=== PATIENT | female | born 1980 ===

== ENCOUNTER 2018-09-15 01:03 | Inpatient (IN) | payer MEDICAID, OTHER ==
[2018-09-15 01:04] VITALS: BMI 35.5
--- NOTE | 2018-09-15 01:22 | C.PDOC ---
History Of Present Illness 37 year old female presents to the emergency department with complaints of depression and suicidal thoughts on and off for the last few years. Patient states that she has no suicidal plan, and that she has been using heroin throughout this time. Time Seen by Provider: 09/15/18 01:22 Chief Complaint (Nursing): Psychiatric Evaluation History Per: Patient History/Exam Limitations: no limitations Onset/Duration Of Symptoms: Waxing/Waning (for the last few years) Current Symptoms Are (Timing): Still Present Suicide/Self Injury Attempted (Context): None Modifying Factor(s): Other (heroin) Associated Symptoms: Depression, Suicidal Thoughts. denies: Suicidal Plan Past Medical History Reviewed: Historical Data, Nursing Documentation, Vital Signs Vital Signs: Last Vital Signs Temp 97.9 F 09/15/18 01:16 Pulse 94 H 09/15/18 01:16 Resp 16 09/15/18 01:16 BP 160/85 H 09/15/18 01:16 Pulse Ox 98 09/15/18 01:16 - Medical History PMH: Anemia, Anxiety, Depression, Diverticulitis, Gastritis, Gall Bladder Disease, HTN, Hypercholesterolemia, Migraine Denies: Diabetes, Hepatitis, HIV, Chronic Kidney Disease, Seizures, Sexually Transmitted Disease Surgical History: Cholecystectomy, Tonsillectomy (09/2013) - [facility] Procedures APPLICATION OF SPLINT (04/06/14) CLOSED ENDOSCOPIC BIOPSY OF LARGE INTESTINE (05/02/13) ESOPHAGOGASTRODUODENOSCOPY [EGD] W/CLOSED BIOPSY (01/08/14) INJECT/INFUSE ELECTROLYT (08/31/14) INJECT/INFUSE NEC (08/31/14) LAPAROSCOP LYSIS-PERITONEAL ADHES (04/10/13) LAPAROSCOPIC CHOLECYSTECTOMY (04/10/13) LAPAROSCOPIC REPAIR UMBILICAL HERNIA W GRAFT OR PROSTHESIS (04/10/13) MEDS MGMT FOR SUBSTANCE ABUSE TREATMENT, METHADONE MAINT (12/14/17) TONSILLECTOMY (09/26/13) TRANSFUSE NONAUT RED BLOOD CELLS IN PERIPH VEIN, PERC (12/14/17) Family History: States: Unknown Family Hx - Social History Hx Tobacco Use: No Hx Alcohol Use: Yes Hx Substance Use: Yes (IVDA 1900) - Immunization History Hx Tetanus Toxoid Vaccination: Yes Hx Influenza Vaccination: Yes Hx Pneumococcal Vaccination: Yes Review Of Systems Constitutional: Negative for: Fever, Chills Psych: Positive for: Depression, Suicidal ideation Physical Exam - Physical Exam Appears: Non-toxic, No Acute Distress Skin: Warm, Dry Head: Normacephalic Eye(s): bilateral: Normal Inspection, PERRL, EOMI Oral Mucosa: Moist Neck: Trachea Midline, Supple Chest: Symmetrical, No Tenderness Cardiovascular: Rhythm Regular, No Murmur Respiratory: No Rales, No Rhonchi, No Wheezing Neurological/Psych: Oriented x3, Normal Speech, Normal Cognition ED Course And Treatment - Laboratory Results Result Diagrams: 09/15/18 01:44 09/15/18 01:44 O2 Sat by Pulse Oximetry: 98 (RA) Pulse Ox Interpretation: Normal Progress Note: Plan: Alcohol Serum. CMP. Drug Screen. Phosphorus. CBC. AES Crisis Eval. HCG Qualitative Urine. Urinalysis Disposition Discussed With Dr.: Toni Virgen Comment: accepted the pt on [facility] service and took over the care at 5:24 AM Counseled Patient/Family Regarding: Studies Performed, Diagnosis - Disposition Disposition: HOSPITALIZED Disposition Time: 01:22 Condition: FAIR Forms: [employer] 2 (Czech) - POA Present On Arrival: None - Clinical Impression Clinical Impression: Major depression, Opioid use disorder - Scribe Statement The provider has reviewed the documentation as recorded by the Scribe (Jose Nickerson) Provider Attestation: All medical record entries made by the Scribe were at my direction and personally dictated by me. I have reviewed the chart and agree that the record accurately reflects my personal performance of the history, physical exam, medical decision making, and the department course for this patient. I have also personally directed, reviewed, and agree with the discharge instructions and disposition. Decision To Admit - Pt Status Changed To: Hospital Disposition Of: Inpatient - Admit Certification Admit to Inpatient:: After my assessment, the patient will require hospitalization for at least two midnights. This is because of the severity of symptoms shown, intensity of services needed, and/or the medical risk in this patient being treated as an outpatient. - InPatient: Physician Admission Certification: I certify that this patient requires 2 or more midnights of care for the following reason:: After my assessment, the patient will require hospitalization for at least two midnights. This is because of the severity of symptoms shown, intensity of services needed, and/or the medical risk in this patient being treated as an outpatient. - . Bed Request Type: Psychiatry Admitting Physician: Toni Virgen Patient Diagnosis: Major depression, Opioid use disorder
[2018-09-15 01:51] LABS: BASO # 0.1 K/uL (0.0-0.2); BASO % 1.2 % (0.0-2.0); EOS % 0.8 % (0.0-4.0); HEMOGLOBIN 13.5 g/dL (11.0-16.0); LYMPH # 1.8 K/uL (1.0-4.3); LYMPH % 37.7 % (20.0-40.0); MEAN CELL VOLUME 88.4 fL (81.0-99.0); MEAN CORPUSCULAR HEMOGLOBIN 29.7 pg (27.0-31.0); MEAN CORPUSCULAR HGB CONC 33.6 g/dL (33.0-37.0); MEAN PLATELET VOLUME 9.6 fL (7.2-11.7); MONO # 0.5 K/uL (0.0-0.8); MONO % 9.7 % (0.0-10.0); NEUT # 2.4 K/uL (1.8-7.0); NEUT % 50.6 % (50.0-75.0); NRBC % 0.1 % (0.0-2.0); RBC 4.56 Mil/uL (3.80-5.20); RED CELL DISTRIBUTION WIDTH 14.7 % (11.5-14.5); WHITE BLOOD COUNT 4.8 K/uL (4.8-10.8)
[2018-09-15 01:55] LABS: HCG,QUALITATIVE URINE NEGATIVE (NEGATIVE)
[2018-09-15 01:56] LABS: SQUAMOUS EPITHIAL 2 /hpf (0-5); URINE BACTERIA RARE (<OCC); URINE BILIRUBIN 1+ (NEGATIVE); URINE BLOOD NEGATIVE (NEGATIVE); URINE CLARITY Hazy (Clear); URINE COLOR Amber (YELLOW); URINE GLUCOSE (UA) NORMAL (Normal); URINE LEUKOCYTE ESTERASE NEG Leu/uL (Negative); URINE PROTEIN 1+ mg/dL (NEGATIVE)
[2018-09-15 02:02] LABS: ALB/GLOB RATIO 1.1 (1.0-2.1); ALBUMIN 4.1 g/dL (3.5-5.0); ALT/SGPT 38 U/L (9-52); AST/SGOT 41 U/L (14-36); BLOOD UREA NITROGEN 11 mg/dL (7-17); CALCIUM 9.7 mg/dl (8.6-10.4); GFR NON-AFRICAN AMERICAN > 60
[2018-09-15 02:10] LABS: PHENCYCLIDINE, UR NEGATIVE (NEGATIVE)
[2018-09-15 02:11] LABS: BARBITURATES, UR POSITIVE (NEGATIVE); BENZODIAZEPINES, UR POSITIVE (NEGATIVE); OPIATES, UR POSITIVE (NEGATIVE)
--- NOTE | 2018-09-15 08:02 | PCM.BM ---
<Saray Whatley - Last Filed: 09/15/18 07:58> Treatment Plan Problems - Problems identified on initial assessmt Depression Date Initiated: 09/15/18 Time Initiated: 07:59 Assessment reference: NA Status: Active Substance Abuse Date Initiated: 09/15/18 Time Initiated: 07:59 Assessment reference: NA Status: Active Treatment assets and liabiliti Patient Assests: ADL independent, physically healthy, negotiates basic needs, cognitively intact Patient Liabilities: live alone, financial problems, substance abuse (Cocaine, Opiates, Beozo), medical problems (brain aneurysm, Hep C, Ovarian cyst), visual impairment (Wear glasses) - Milieu Protocol Maintain good personal hygiene: daily Encourage regular showers, daily Remind patient to perform daily oral care, daily Assist patient to perform ADL's (Self) Conduct patient checks and document Observation sheet: Q15 minutes Maintain personal safety: every shift Educate patient to report safety concerns to staff, every shift Monitor environment for contraband/sharps Medication safety: Monitor for expected outcome, potential side effects: every shift, Assess barriers to learning: every shift, Assess readiness for medication education: every shift <Jenny Wheat - Last Filed: 09/16/18 13:36> Family Contact Family involvement: Famliy/SO not involved - Goals for Treatment Patient goals for treatment: "I need a methadone program." Discharge/Continuing Care - Education Needs Education Needs: Patient Medication, Patient Coping Skills, Patient Placement options, Patient Community resources - Discharge Discharge Criteria: Tolerates medication w/o severe side effects, No longer exhibiting s/s of withdrawal, Reduction of target symptoms Discharge to:: [facility] - Treatment Team Participation Discussed with Family/SO: No Was Patient/Family/SO present at Treatment Team Meeting: Yes <Suzie Sylvester - Last Filed: 09/16/18 14:01> - Diagnosis (1) Major depression Status: Acute Interventions: 09/16/18 14:01 * Assess/adjust medications daily and /or as needed * See patient on an individual basis 7x/week to assess symptoms of depression * Monitor for side effects & effectiveness of medications * (2) Opioid use disorder Status: Acute Interventions: 09/16/18 14:01 * Assess 7x/week regarding severity of withdrawal * Educate regarding risks, benefits, side effects and alternatives of medications * Use Motivational Interviewing for abstinence * Use CBT for relapse prevention * Medication management for withdrawal symptoms * Encourage medication assisted treatment *
[2018-09-15] MEDS ORDERED: Aluminum Hydroxide/Magnesium Hydroxide Susp (30 mL) PO PRN (16:22)
--- NOTE | 2018-09-15 19:16 | PCM.PSYCH ---
Initial Psychiatric Evaluation - Initial Psychiatric Evaluation Type of Admission: Voluntary Legal Status: Capacity Current Medications: Active Medications Generic Name Dose Route Start Last Admin Trade Name Freq PRN Reason Stop Dose Admin Al Hydrox/Mg Hydrox/Simethicone 30 ml 09/15/18 16:22 Maalox 30 Ml PO TID PRN Indigestion / Heartburn Clonidine HCl 0.1 mg 09/15/18 16:22 Catapres PO Q8 PRN COWS Score More or Equal to 5 Dicyclomine HCl 10 mg 09/15/18 16:25 Bentyl PO Q6 PRN Abdominal cramps Gabapentin 300 mg 09/15/18 18:00 09/15/18 17:19 Neurontin PO 300 mg BID NEHA Administration Ibuprofen 400 mg 09/15/18 16:26 Motrin Tab PO Q6 PRN Pain, moderate (4-7) Influenza Virus Vaccine 60 mcg 09/17/18 10:00 Fluzone Quad [id number] IM 09/17/18 10:01 .ONCE ONE Loperamide HCl 2 mg 09/15/18 16:22 Imodium PO Q8 PRN Diarrhea Lorazepam 1 mg 09/15/18 16:27 Ativan PO Q6 PRN for angiolytic withdrawal Methadone HCl 15 mg 09/16/18 10:00 Methadone PO 09/19/18 09:59 Q24H NEHA Taper Ondansetron HCl 4 mg 09/15/18 16:22 Zofran Tab PO Q8 PRN Nausea/Vomiting Pneumococcal Polyvalent Vaccine 0.5 ml 09/17/18 10:00 Pneumovax 23 Vaccine IM 09/17/18 10:01 .ONCE ONE Trazodone HCl 50 mg 09/15/18 22:00 Desyrel PO HS NEHA Past Psychiatric History - Past Psychiatric History Pertinent Medical Hx (Current Medical&Sleep Prob, Allergies): Allergies Allergy/AdvReac Type Severity Reaction Status Date / Time adhesive tape Allergy RASH Verified 08/23/18 18:16 Alprazolam [Xanax] 2 mg PO QID 12/19/17 Oxycodone HCl [Roxicodone] 30 mg PO QID 12/27/17 PARoxetine [Paxil] 10 mg PO DAILY 12/27/17 Ibuprofen [Motrin] 600 mg PO Q6 PRN #30 tab 08/13/18 RX: Clindamycin [Cleocin] 300 mg PO QID PRN #40 cap 08/23/18 RX: Ibuprofen [Motrin Tab] 600 mg PO QID PRN #30 tab 08/23/18
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
[2018-09-17] MEDS ORDERED: Influenza Vaccine 60 MCG/0.5 ML SYR (3 yr & up) IM ONE (10:00)
[2018-09-17] MEDS ORDERED: Pneumococcal 23-Valent Vaccine IM ONE (10:00)
--- NOTE | 2018-09-17 11:48 | PCM.PYCHPN ---
Psychiatric Progress Note - Psychiatric Progress Note Patient seen today, length of contact: 19 min Patient Chief Complaint: "I am better but not so much" Problems Identified/Issues Discussed: The pt is seen, chart reviewed, case discussed with staff. The pt is compliant with medications and reports no side-effects. Symptoms are improving but needs more time to stabilize. Pt attends groups and activities. Support given, psycho-education provided. After care discussed. She is still not interested - "I guess I'll just go to the streets and do what I do" Risks discussed Medication Change: Yes (meds increased slowly) Medical Record Reviewed: Yes Mental Status Examination - Cognitive Function Orientation: Person, Place, Situation, Time Memory: Intact Attention: WNL Concentration: Poor Association: WNL Fund of Knowledge: WNL - Mood Mood: Depressed, Anxious - Affect Affect: Constricted - Speech Speech: Appropriate - Formal Thought Process Formal Thought Process: No Impairment - Suicidal Ideation Suicidal Ideation: No - Homicidal Ideation Homicidal Ideation: No Goal/Treatment Plan - Goal/Treatment Plan Need for Continued Stay: Severe depression anxiety, Discharge may exacerbated symptoms, Severe functional impairment Progress Toward Problem(s) and Goals/Treatment Plan: Taper with methadone Seroquel for mood sxs remeron and wellbutrin for depression Gabapentin for augmentation and anxiety As needed medications All risks, benefits and alternatives of the meds discussed, and the pt agreed and understood. Attend groups and activities Supportive therapy and psychoeducation [place] for abstinence CBT for relapse prevention Encourage MAT Refer to rehab or IOP, and self-help groups Teach healthy lifestyle methods, i.e. diet, exercise, meditation Smoking cessation with [place] Nicotine patch if needed Estimated Date of D/C: 09/20/18
--- NOTE | 2018-09-18 11:48 | PCM.PYCHPN ---
Psychiatric Progress Note - Psychiatric Progress Note Patient seen today, length of contact: 19 min Patient Chief Complaint: "I was suicidal yesterday, a little better today" Problems Identified/Issues Discussed: The pt is seen, chart reviewed, case discussed with staff. The pt is compliant with medications and reports no side-effects. She reports flashbacks, nightmares, insomnia, PTSD sxs and low mood Meds increased and Prazosin added She put in a 48 hr note but rescinded it today Support and psychoed given [place] and CBt used Medication Change: Yes (meds increased slowly) Medical Record Reviewed: Yes Mental Status Examination - Cognitive Function Orientation: Person, Place, Situation, Time Memory: Intact Attention: WNL Concentration: Poor Association: WNL Fund of Knowledge: WNL - Mood Mood: Depressed, Anxious - Affect Affect: Constricted - Speech Speech: Appropriate - Formal Thought Process Formal Thought Process: No Impairment - Suicidal Ideation Suicidal Ideation: No - Homicidal Ideation Homicidal Ideation: No Goal/Treatment Plan - Goal/Treatment Plan Need for Continued Stay: Severe depression anxiety, Discharge may exacerbated symptoms, Severe functional impairment Progress Toward Problem(s) and Goals/Treatment Plan: Taper with methadone, ending tomorrow Seroquel for mood sxs - increased remeron and wellbutrin for depression - the latter increased prazosin for pTSD Suicide prevention discussed - she contracted for safety and will follow safety plan Gabapentin for augmentation and anxiety As needed medications All risks, benefits and alternatives of the meds discussed, and the pt agreed and understood. Attend groups and activities Supportive therapy and psychoeducation [place] for abstinence CBT for relapse prevention Encourage MAT Refer to rehab or IOP, and self-help groups Teach healthy lifestyle methods, i.e. diet, exercise, meditation Smoking cessation with [place] Nicotine patch if needed Estimated Date of D/C: 09/20/18
[2018-09-18] MEDS ORDERED: Prazosin HCL 2 mg PO SCH (18:00)
[2018-09-19] MEDS: buPROPion 150 mg/24 Hours XL Tab PO SCH (10:26)
--- NOTE | 2018-09-19 13:06 | PCM.PYCHPN ---
Psychiatric Progress Note - Psychiatric Progress Note Patient seen today, length of contact: 17 min Patient Chief Complaint: "I hallucinated last night about my mother" Problems Identified/Issues Discussed: The pt is seen, chart reviewed, case discussed with staff. The pt is compliant with medications and reports no side-effects. Symptoms are improving but needs more time to stabilize. Still having AVH on and off, likely PTSD-related, mood swings, insomnia Not suicidal, no plans Pt attends groups and activities but nor regularly Support given, psycho-education provided. After care discussed. She is not sure Medication Change: Yes (meds increased slowly) Medical Record Reviewed: Yes Mental Status Examination - Cognitive Function Orientation: Person, Place, Situation, Time Memory: Intact Attention: WNL Concentration: Poor Association: WNL Fund of Knowledge: WNL - Mood Mood: Depressed, Anxious - Affect Affect: Constricted - Speech Speech: Appropriate - Formal Thought Process Formal Thought Process: No Impairment - Suicidal Ideation Suicidal Ideation: No - Homicidal Ideation Homicidal Ideation: No Goal/Treatment Plan - Goal/Treatment Plan Need for Continued Stay: Severe depression anxiety, Discharge may exacerbated symptoms, Severe functional impairment Progress Toward Problem(s) and Goals/Treatment Plan: Taper with methadone, ending tomorrow Seroquel for mood sxs - increased remeron and wellbutrin for depression - the latter increased prazosin for pTSD Suicide prevention discussed - she contracted for safety and will follow safety plan Gabapentin for augmentation and anxiety As needed medications All risks, benefits and alternatives of the meds discussed, and the pt agreed and understood. Attend groups and activities Supportive therapy and psychoeducation [place] for abstinence CBT for relapse prevention Encourage MAT Refer to rehab or IOP, and self-help groups Teach healthy lifestyle methods, i.e. diet, exercise, meditation Smoking cessation with [place] Nicotine patch if needed Estimated Date of D/C: 09/20/18
[2018-09-19] MEDS: Prazosin HCL 2 mg PO SCH (21:09)
[2018-09-20] MEDS: buPROPion 150 mg/24 Hours XL Tab PO SCH (09:43)
--- NOTE | 2018-09-20 11:06 | PCM.PYCHPN ---
Psychiatric Progress Note - Psychiatric Progress Note Patient seen today, length of contact: 18 min Patient Chief Complaint: "I am very very anxious" Problems Identified/Issues Discussed: The pt is seen, chart reviewed, case discussed with staff. The pt is compliant with medications and reports no side-effects. Symptoms are improving but needs more time to stabilize. Still c/o severe anxiety, depression, at times VH. No SP but has vague SI on and off She agred to d/c ativan but will use klonopin for now - Risks , incl. addiction, seizures discussed. Pt attends groups and activities. Support given, psycho-education provided. After care discussed. Medication Change: Yes (meds increased slowly) Medical Record Reviewed: Yes Mental Status Examination - Cognitive Function Orientation: Person, Place, Situation, Time Memory: Intact Attention: WNL Concentration: Poor Association: WNL Fund of Knowledge: WNL - Mood Mood: Depressed, Anxious - Affect Affect: Constricted - Speech Speech: Appropriate - Formal Thought Process Formal Thought Process: No Impairment - Suicidal Ideation Suicidal Ideation: No - Homicidal Ideation Homicidal Ideation: No Goal/Treatment Plan - Goal/Treatment Plan Need for Continued Stay: Severe depression anxiety, Discharge may exacerbated symptoms, Severe functional impairment Progress Toward Problem(s) and Goals/Treatment Plan: Taper with methadone, ending tomorrow Seroquel for mood sxs - increased remeron and wellbutrin for depression - the latter increased prazosin for pTSD Suicide prevention discussed - she contracted for safety and will follow safety plan Gabapentin for augmentation and anxiety As needed medications All risks, benefits and alternatives of the meds discussed, and the pt agreed and understood. Attend groups and activities Supportive therapy and psychoeducation [place] for abstinence CBT for relapse prevention Encourage MAT Refer to rehab or IOP, and self-help groups Teach healthy lifestyle methods, i.e. diet, exercise, meditation Smoking cessation with [place] Nicotine patch if needed Estimated Date of D/C: 09/23/18 If changed, why: still very sick, depressed, suicidal
[2018-09-20] MEDS: Prazosin HCL 2 mg PO SCH (21:25)
[2018-09-21] MEDS: buPROPion 150 mg/24 Hours XL Tab PO SCH (09:08)
[2018-09-21] MEDS: Prazosin HCL 2 mg PO SCH (21:11)
--- NOTE | 2018-09-21 22:58 | PCM.PYCHPN ---
Psychiatric Progress Note - Psychiatric Progress Note Patient seen today, length of contact: 16 min Patient Chief Complaint: "I am still depressed, I don't know why" Problems Identified/Issues Discussed: The pt is seen, chart reviewed, case discussed with staff. The pt is compliant with medications and reports no side-effects. Symptoms are improving but needs more time to stabilize. After care discussed, support and psychoeducation given. Ways to cope with dep/anx/anger discussed Medication Change: Yes (meds increased slowly) Medical Record Reviewed: Yes Mental Status Examination - Cognitive Function Orientation: Person, Place, Situation, Time Memory: Intact Attention: WNL Concentration: Poor Association: WNL Fund of Knowledge: WNL - Mood Mood: Depressed, Anxious - Affect Affect: Constricted - Speech Speech: Appropriate - Formal Thought Process Formal Thought Process: No Impairment - Suicidal Ideation Suicidal Ideation: No - Homicidal Ideation Homicidal Ideation: No Goal/Treatment Plan - Goal/Treatment Plan Need for Continued Stay: Severe depression anxiety, Discharge may exacerbated symptoms, Severe functional impairment Progress Toward Problem(s) and Goals/Treatment Plan: Taper with methadone, ending tomorrow Seroquel for mood sxs - increased remeron and wellbutrin for depression - the latter increased prazosin for pTSD Suicide prevention discussed - she contracted for safety and will follow safety plan Gabapentin for augmentation and anxiety As needed medications All risks, benefits and alternatives of the meds discussed, and the pt agreed and understood. Attend groups and activities Supportive therapy and psychoeducation IL for abstinence CBT for relapse prevention Encourage MAT Refer to rehab or IOP, and self-help groups Teach healthy lifestyle methods, i.e. diet, exercise, meditation Smoking cessation with IL Nicotine patch if needed Estimated Date of D/C: 09/23/18
[2018-09-22 06:55] VITALS: RESP 20
[2018-09-22] MEDS: buPROPion 150 mg/24 Hours XL Tab PO SCH (09:22)
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
[2018-09-22] MEDS: Prazosin HCL 2 mg PO SCH (21:14)
[2018-09-23 08:52] VITALS: BP 105/72; PULSE 93; TEMP 97.9; O2SAT 95
[2018-09-23] MEDS: buPROPion 150 mg/24 Hours XL Tab PO SCH (09:35)
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
== END 2018-09-23 12:28 | disposition home or self-care (01) | DRG 753 ==
LOC: C.ER 01:03 → C.5E 05:23
PROC: GZ3ZZZZ Medication Management (ICD-10-PCS; principal; 2018-09-15)
PROC: HZ81ZZZ Medication Management for Substance Abuse Treatment, Methadone Maintenance (ICD-10-PCS; 2018-09-15)
PROC: HZ80ZZZ Medication Management for Substance Abuse Treatment, Nicotine Replacement (ICD-10-PCS; 2018-09-15)
PROC: GZHZZZZ Group Psychotherapy (ICD-10-PCS; 2018-09-15)
PROC: GZ56ZZZ Individual Psychotherapy, Supportive (ICD-10-PCS; 2018-09-15)
DX: F31.4 Bipolar disorder, current episode depressed, severe, without psychotic features (principal); F22 Delusional disorders; R45.851 Suicidal ideations; F11.23 Opioid dependence with withdrawal; F14.90 Cocaine use, unspecified, uncomplicated; F43.10 Post-traumatic stress disorder, unspecified; F60.3 Borderline personality disorder; G47.00 Insomnia, unspecified; Z62.810 Personal history of physical and sexual abuse in childhood; I10 Essential (primary) hypertension; D64.9 Anemia, unspecified; Z91.5 Personal history of self-harm; Z59.0 Homelessness; Z90.49 Acquired absence of other specified parts of digestive tract

== ENCOUNTER 2018-10-01 19:38 | Inpatient (IN) | payer MEDICAID ==
[2018-10-01 19:38] VITALS: BMI 35.5
[2018-10-01 20:46] LABS: BASO % 0.6 % (0.0-2.0); EOS # 0.1 K/uL (0.0-0.7); HEMOGLOBIN 12.7 g/dL (11.0-16.0); LYMPH # 1.5 K/uL (1.0-4.3); LYMPH % 30.6 % (20.0-40.0); MEAN CELL VOLUME 88.2 fL (81.0-99.0); MEAN CORPUSCULAR HEMOGLOBIN 29.2 pg (27.0-31.0); MEAN CORPUSCULAR HGB CONC 33.1 g/dL (33.0-37.0); MEAN PLATELET VOLUME 7.4 fL (7.2-11.7); MONO # 0.4 K/uL (0.0-0.8); MONO % 9.3 % (0.0-10.0); NEUT # 2.8 K/uL (1.8-7.0); NEUT % 57.5 % (50.0-75.0); NRBC % 0.1 % (0.0-2.0); RBC 4.34 Mil/uL (3.80-5.20); RED CELL DISTRIBUTION WIDTH 15.7 % (11.5-14.5); WHITE BLOOD COUNT 4.8 K/uL (4.8-10.8)
--- NOTE | 2018-10-01 20:46 | C.PDOC ---
History Of Present Illness 37 year old female with PMHx of bipolar, depression, borderline personality disorder presents to the ED for evaluation. Patient states " I feel like do not want to live anymore". Patient had a plan to jump in front of a train. Patient reports she drank windex yesterday but vomited after. Patient was recently admitted to the Hospital in the past for the same. Patient denies HI, hallucinations, CP, SOB, nausea, vomit, weakness, numbness, injury, fall, trauma. Time Seen by Provider: 10/01/18 20:34 Chief Complaint (Nursing): Psychiatric Evaluation History Per: Patient History/Exam Limitations: no limitations Onset/Duration Of Symptoms: Days Current Symptoms Are (Timing): Still Present Suicide/Self Injury Attempted (Context): Ingestion, Other Modifying Factor(s): None Associated Symptoms: Depression, Suicidal Thoughts, Suicidal Plan Recent travel outside of the [place]: No Additional History Per: Patient Past Medical History Reviewed: Historical Data, Nursing Documentation, Vital Signs Vital Signs: Last Vital Signs Temp 98.1 F 10/01/18 19:48 Pulse 73 10/01/18 19:48 Resp 18 10/01/18 19:48 BP 106/72 10/01/18 19:48 Pulse Ox 99 10/01/18 19:48 - Medical History PMH: Anemia, Anxiety, Depression, Diverticulitis, Gastritis, Gall Bladder Disease, HTN, Hypercholesterolemia, Migraine Denies: Diabetes, Hepatitis, HIV, Chronic Kidney Disease, Seizures, Sexually Transmitted Disease Surgical History: Cholecystectomy, Tonsillectomy (09/2013) - [facility] Procedures APPLICATION OF SPLINT (04/06/14) CLOSED ENDOSCOPIC BIOPSY OF LARGE INTESTINE (05/02/13) ESOPHAGOGASTRODUODENOSCOPY [EGD] W/CLOSED BIOPSY (01/08/14) GROUP PSYCHOTHERAPY (09/15/18) INDIVIDUAL PSYCHOTHERAPY, SUPPORTIVE (09/15/18) INJECT/INFUSE ELECTROLYT (08/31/14) INJECT/INFUSE NEC (08/31/14) LAPAROSCOP LYSIS-PERITONEAL ADHES (04/10/13) LAPAROSCOPIC CHOLECYSTECTOMY (04/10/13) LAPAROSCOPIC REPAIR UMBILICAL HERNIA W GRAFT OR PROSTHESIS (04/10/13) MEDICATION MANAGEMENT (09/15/18) MEDS MGMT FOR SUBSTANCE ABUSE TREATMENT, METHADONE MAINT (09/15/18) MEDS MGMT FOR SUBSTANCE ABUSE TREATMENT, NICOTINE REPLACE (09/15/18) TONSILLECTOMY (09/26/13) TRANSFUSE NONAUT RED BLOOD CELLS IN PERIPH VEIN, PERC (12/14/17) Family History: States: Unknown Family Hx - Social History Hx Tobacco Use: No Hx Alcohol Use: No Hx Substance Use: Yes - Immunization History Hx Tetanus Toxoid Vaccination: Yes Hx Influenza Vaccination: Yes Hx Pneumococcal Vaccination: Yes Review Of Systems Constitutional: Negative for: Fever, Chills Cardiovascular: Negative for: Chest Pain Respiratory: Negative for: Shortness of Breath Gastrointestinal: Negative for: Nausea, Vomiting, Abdominal Pain Skin: Negative for: Rash Neurological: Negative for: Weakness, Numbness, Headache, Dizziness Psych: Positive for: Depression, Suicidal ideation Physical Exam - Physical Exam Appears: Non-toxic, No Acute Distress, Other (flat affect) Skin: Normal Color, Warm, Dry Head: Atraumatic, Normacephalic Eye(s): bilateral: Normal Inspection Oral Mucosa: Moist Neck: Normal ROM, Supple Chest: Symmetrical Cardiovascular: Rhythm Regular Respiratory: Normal Breath Sounds, No Rales, No Rhonchi, No Wheezing Gastrointestinal/Abdominal: Soft, No Tenderness, No Guarding, No Rebound Extremity: Normal ROM, No Tenderness, No Swelling Neurological/Psych: Oriented x3, Normal Speech, Normal Cognition, Other (flat affect) Gait: Steady ED Course And Treatment - Laboratory Results Result Diagrams: 10/01/18 20:41 10/01/18 20:41 O2 Sat by Pulse Oximetry: 99 (ON RA) Pulse Ox Interpretation: Normal Medical Decision Making Medical Decision Making: Plan: * Labs * UA * Crisis evaluation 23:51- 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 Kern accepts patient for admission to psych unit Disposition - Disposition Disposition: HOSPITALIZED Disposition Time: 23:51 Condition: STABLE - Clinical Impression Clinical Impression: Manic bipolar I disorder, Borderline personality disorder, Polysubstance abuse - Scribe Statement The provider has reviewed the documentation as recorded by the Scribe Josue Cates All medical record entries made by the Scribe were at my direction and personally dictated by me. I have reviewed the chart and agree that the record accurately reflects my personal performance of the history, physical exam, me dical decision making, and the department course for this patient. I have also personally directed, reviewed, and agree with the discharge instructions and disposition.
[2018-10-01 21:02] LABS: ALB/GLOB RATIO 1.1 (1.0-2.1); ALBUMIN 3.7 g/dL (3.5-5.0); ALT/SGPT 87 U/L (9-52); AST/SGOT 116 U/L (14-36); BLOOD UREA NITROGEN 9 mg/dL (7-17); CALCIUM 8.9 mg/dl (8.6-10.4); GFR NON-AFRICAN AMERICAN > 60
[2018-10-01 23:13] LABS: SQUAMOUS EPITHIAL 6 /hpf (0-5); URINE BACTERIA RARE (<OCC); URINE BILIRUBIN 2+ (NEGATIVE); URINE BLOOD NEGATIVE (NEGATIVE); URINE CLARITY Hazy (Clear); URINE COLOR Amber (YELLOW); URINE GLUCOSE (UA) NORMAL (Normal); URINE HYALINE CAST 0-2 /lpf (0-2); URINE LEUKOCYTE ESTERASE TRACE Leu/uL (Negative); URINE PROTEIN 1+ mg/dL (NEGATIVE)
[2018-10-01 23:16] LABS: HCG,QUALITATIVE URINE NEGATIVE (NEGATIVE)
[2018-10-01 23:29] LABS: BARBITURATES, UR NEGATIVE (NEGATIVE); BENZODIAZEPINES, UR NEGATIVE (NEGATIVE); PHENCYCLIDINE, UR NEGATIVE (NEGATIVE)
[2018-10-01 23:31] LABS: OPIATES, UR POSITIVE (NEGATIVE)
[2018-10-01 23:53] VITALS: O2SAT 99
--- NOTE | 2018-10-02 02:45 | PCM.BM ---
<Aliyah Wolf - Last Filed: 10/02/18 02:44> Treatment Plan Problems - Problems identified on initial assessmt Opiates Abuse Date Initiated: 10/02/18 Time Initiated: 00:25 Assessment reference: NA Status: Active Suicidal Ideation Date Initiated: 10/02/18 Time Initiated: 00:25 Assessment reference: NA Status: Active Treatment assets and liabiliti Patient Assests: ADL independent, physically healthy, negotiates basic needs, cognitively intact Patient Liabilities: substance abuse (Heroin, Cocaine), medical problems - Milieu Protocol Maintain good personal hygiene: daily Encourage regular showers, daily Remind patient to perform daily oral care, every shift Assist patient to perform ADL's Conduct patient checks and document Observation sheet: Q15 minutes Maintain personal safety: every shift Educate patient to report safety concerns to staff, every shift Monitor environment for contraband/sharps Medication safety: Monitor for expected outcome, potential side effects: every shift, Assess barriers to learning: every shift, Assess readiness for medication education: every shift <Jenny Wheat - Last Filed: 10/02/18 11:26> Family Contact Family involvement: Famliy/SO not involved - Goals for Treatment Patient goals for treatment: "I want to go to rehab." Discharge/Continuing Care - Education Needs Education Needs: Patient Medication, Patient Coping Skills, Patient Placement options, Patient Community resources - Discharge Discharge Criteria: Tolerates medication w/o severe side effects, No longer exhibiting s/s of withdrawal, Reduction of target symptoms Discharge to:: Substance Abuse Rehab - Treatment Team Participation Discussed with Family/SO: No Was Patient/Family/SO present at Treatment Team Meeting: Yes <Suzie Sylvester - Last Filed: 10/02/18 12:53> - Diagnosis (1) Bipolar 1 disorder, depressed, severe Status: Acute Interventions: 10/02/18 12:53 * Assess/adjust medications daily and /or as needed * See patient on an individual basis 7x/week to assess level of manic behaviors and stability * Discuss risks, benefits, side effects and alternatives of medications * (2) Opioid use disorder Status: Acute Interventions: 10/02/18 12:53 * Assess 7x/week regarding severity of withdrawal * Educate regarding risks, benefits, side effects and alternatives of medications * Use Motivational Interviewing for abstinence * Use CBT for relapse prevention * Medication management for withdrawal symptoms * Encourage medication assisted treatment *
[2018-10-02] MEDS ORDERED: Aluminum Hydroxide/Magnesium Hydroxide Susp (30 mL) PO PRN (11:21)
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
[2018-10-02] MEDS: buPROPion 150 mg/24 Hours XL Tab PO SCH (11:58)
--- NOTE | 2018-10-03 08:44 | PCM.PYCHPN ---
Psychiatric Progress Note - Psychiatric Progress Note Patient seen today, length of contact: 18 min Patient Chief Complaint: "I'm still depressed' Problems Identified/Issues Discussed: The pt is seen, chart reviewed, case discussed with staff. Support and psychoeducation given, CBT and GA used briefly No new symptoms reported, improving slowly and needs more time She claims 15 mg methadone did not hold her and she threw up Slightly better today but another 5 mg added to her taper (of 10 mg) No SEs from medications, risks discussed. After care discussed - Trying to get in [facility] Medication Change: Yes (meds change daily) Medical Record Reviewed: Yes Mental Status Examination - Cognitive Function Orientation: Person, Place, Situation, Time Memory: Intact Attention: Poor Concentration: Poor Association: WNL Fund of Knowledge: Poor - Mood Mood: Depressed, Anxious - Affect Affect: Constricted - Speech Speech: Appropriate - Formal Thought Process Formal Thought Process: No Impairment - Suicidal Ideation Suicidal Ideation: No - Homicidal Ideation Homicidal Ideation: No Goal/Treatment Plan - Goal/Treatment Plan Need for Continued Stay: Discharge may exacerbated symptoms, Severe functional impairment Progress Toward Problem(s) and Goals/Treatment Plan: Resume wellbutrin 300 mg and remeron for depression Seroquel for mood swings Taper with methadone adjusted Gabapentin for augmentation As needed medications All risks, benefits and alternatives of the meds discussed, and the pt agreed and understood. Attend groups and activities Supportive therapy and psychoeducation GA for abstinence CBT for relapse prevention Encourage MAT Refer to rehab or IOP, and self-help groups Teach healthy lifestyle methods, i.e. diet, exercise, meditation Limit setting for borderline, and DBT Patch for nicotine Estimated Date of D/C: 10/04/18 - Smoking Cessation Smoking Cessation Initiated: Yes
[2018-10-03] MEDS: buPROPion 150 mg/24 Hours XL Tab PO SCH (09:58)
[2018-10-04] MEDS: buPROPion 150 mg/24 Hours XL Tab PO SCH (09:51)
[2018-10-04] MEDS ORDERED: Pneumococcal 23-Valent Vaccine IM ONE (10:00)
--- NOTE | 2018-10-04 12:18 | RAD ---
Date of service: 10/04/2018 HISTORY: Rehab clearance, substance abuse COMPARISON: No prior. TECHNIQUE: Chest PA and lateral FINDINGS: LUNGS: No active pulmonary disease. PLEURA: No significant pleural effusion identified. No pneumothorax apparent. CARDIOVASCULAR: No aortic atherosclerotic calcification present. Normal cardiac size. No pulmonary vascular congestion. OSSEOUS STRUCTURES: No significant abnormalities. VISUALIZED UPPER ABDOMEN: Normal. OTHER FINDINGS: None. IMPRESSION: No active disease.
--- NOTE | 2018-10-04 13:02 | PCM.PYCHPN ---
Psychiatric Progress Note - Psychiatric Progress Note Patient seen today, length of contact: 17 min Patient Chief Complaint: "I'm better" Problems Identified/Issues Discussed: The pt is seen, chart reviewed, case discussed with staff. The pt is compliant with medications and reports no side-effects. Symptoms are improving but needs more time to stabilize. She is skipping groups sometimes Still anxious and depressed Waiting for rehab acceptance, CXR done Support given, psycho-education provided. After care discussed. Medication Change: Yes (meds change daily) Medical Record Reviewed: Yes Mental Status Examination - Cognitive Function Orientation: Person, Place, Situation, Time Memory: Intact Attention: Poor Concentration: Poor Association: WNL Fund of Knowledge: Poor - Mood Mood: Depressed, Anxious - Affect Affect: Constricted - Speech Speech: Appropriate - Formal Thought Process Formal Thought Process: No Impairment - Suicidal Ideation Suicidal Ideation: No - Homicidal Ideation Homicidal Ideation: No Goal/Treatment Plan - Goal/Treatment Plan Need for Continued Stay: Discharge may exacerbated symptoms, Severe functional impairment Progress Toward Problem(s) and Goals/Treatment Plan: Resume wellbutrin 300 mg and remeron for depression Seroquel for mood swings Taper with methadone adjusted Gabapentin for augmentation As needed medications All risks, benefits and alternatives of the meds discussed, and the pt agreed and understood. Attend groups and activities Supportive therapy and psychoeducation OR for abstinence CBT for relapse prevention Encourage MAT Refer to rehab or IOP, and self-help groups Teach healthy lifestyle methods, i.e. diet, exercise, meditation Limit setting for borderline, and DBT Patch for nicotine Estimated Date of D/C: 10/07/18 If changed, why: Not ready, depressed, ben lgo to rehab
[2018-10-05] MEDS: buPROPion 150 mg/24 Hours XL Tab PO SCH ×2 (09:35→13:10)
[2018-10-05] MEDS ORDERED: Influenza Vaccine 60 MCG/0.5 ML SYR (3 yr & up) IM ONE (10:00)
[2018-10-06 07:12] VITALS: RESP 20
[2018-10-06] MEDS: buPROPion 150 mg/24 Hours XL Tab PO SCH (09:33)
--- NOTE | 2018-10-07 04:10 | PCM.PYCHPN ---
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 PT IS EATING AND SLEEPING POORLY Medical Problems: NOTHING ACUTE Diagnostic Results: REVIEWED Medication Change: Yes (meds change daily) Medical Record Reviewed: Yes Mental Status Examination - Cognitive Function Orientation: Person, Place, Situation, Time Memory: Intact Attention: WNL Concentration: Poor Association: WNL Fund of Knowledge: WNL - Mood Mood: Depressed, Anxious - Affect Affect: Constricted - Speech Speech: Appropriate - Formal Thought Process Formal Thought Process: No Impairment - Suicidal Ideation Suicidal Ideation: No - Homicidal Ideation Homicidal Ideation: No Goal/Treatment Plan - Goal/Treatment Plan Need for Continued Stay: Remain at risks for inpatient hospitalization, Discharge may exacerbated symptoms, Severe functional impairment Progress Toward Problem(s) and Goals/Treatment Plan: BIPOLAR DISORDERN MOOD STABILIZERS OPIOID WITHDRAWAL METHADONE TAPER OPIOID USE DISORDER CBT AR GROUP MILIEU AND RECREATIONAL THERAPY SUPPORTIVE PSYCHOTHERAPY Estimated Date of D/C: 10/07/18 - Smoking Cessation Smoking Cessation Initiated: No
--- NOTE | 2018-10-07 04:18 | PCM.PYCHPN ---
Psychiatric Progress Note - Psychiatric Progress Note Patient seen today, length of contact: 17 min Patient Chief Complaint: I AM ANXIOUS Problems Identified/Issues Discussed: PT SEEN AND EXAMINED CHART IREVIEWED DISCUSSED WITH STAFF DISCUSSED WITH PT ALTERNATIVES TO BENZOS FOR ANXIETY D Medical Problems: NOTHING ACUTE Diagnostic Results: REVIEWED Medication Change: Yes (BUSPAR INCREASED NEURONTIN) Medical Record Reviewed: Yes Mental Status Examination - Cognitive Function Orientation: Person, Place, Situation, Time Memory: Intact Attention: WNL Concentration: Poor Association: WNL Fund of Knowledge: WNL - Mood Mood: Depressed, Anxious - Affect Affect: Constricted - Speech Speech: Appropriate - Formal Thought Process Formal Thought Process: No Impairment - Suicidal Ideation Suicidal Ideation: No - Homicidal Ideation Homicidal Ideation: No Goal/Treatment Plan - Goal/Treatment Plan Need for Continued Stay: Remain at risks for inpatient hospitalization, Discharge may exacerbated symptoms, Severe functional impairment Progress Toward Problem(s) and Goals/Treatment Plan: BIPOLAR DISORDERN MOOD STABILIZERS OPIOID WITHDRAWAL METHADONE TAPER OPIOID USE DISORDER CBT NM GROUP MILIEU AND RECREATIONAL THERAPY SUPPORTIVE PSYCHOTHERAPY PTSD BUSPAR INCREASED NEURONTIN Estimated Date of D/C: 10/07/18
[2018-10-07] MEDS: buPROPion 150 mg/24 Hours XL Tab PO SCH (09:51)
--- NOTE | 2018-10-07 12:57 | PCM.PYCHPN ---
Psychiatric Progress Note - Psychiatric Progress Note Patient seen today, length of contact: 16 min Patient Chief Complaint: "I'm anxious' Problems Identified/Issues Discussed: The pt is seen, chart reviewed, case discussed with staff. Support and psychoeducation given, CBT and NJ used briefly No new symptoms reported, improving slowly and needs more time No SEs from medications, risks discussed. After care discussed - Rejected by [facility] but we will try [facility] in [facility] Medication Change: Yes Medical Record Reviewed: Yes Mental Status Examination - Cognitive Function Orientation: Person, Place, Situation, Time Memory: Intact Attention: WNL Concentration: Poor Association: WNL Fund of Knowledge: WNL - Mood Mood: Depressed, Anxious - Affect Affect: Constricted - Speech Speech: Appropriate - Formal Thought Process Formal Thought Process: No Impairment - Suicidal Ideation Suicidal Ideation: No - Homicidal Ideation Homicidal Ideation: No Goal/Treatment Plan - Goal/Treatment Plan Need for Continued Stay: Remain at risks for inpatient hospitalization, Discharge may exacerbated symptoms, Severe functional impairment Progress Toward Problem(s) and Goals/Treatment Plan: Resume wellbutrin 300 mg and remeron for depression Seroquel for mood swings Taper with methadone adjusted Gabapentin for augmentation As needed medications All risks, benefits and alternatives of the meds discussed, and the pt agreed and understood. Attend groups and activities Supportive therapy and psychoeducation NJ for abstinence CBT for relapse prevention Encourage MAT Refer to rehab or IOP, and self-help groups Teach healthy lifestyle methods, i.e. diet, exercise, meditation Limit setting for borderline, and DBT Patch for nicotine Estimated Date of D/C: 10/08/18 If changed, why: still depressed and very anxious
[2018-10-08 06:50] VITALS: TEMP 98.3
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
[2018-10-08] MEDS: buPROPion 150 mg/24 Hours XL Tab PO SCH (09:10)
[2018-10-08 10:21] VITALS: BP 103/73; PULSE 103
== END 2018-10-08 12:29 | disposition home or self-care (01) | DRG 753 ==
LOC: SUPCPDRO 19:38 → C.ER 19:38 → C.5E 23:52
PROVIDERS: ADMIT Psychiatry & Neurology Psychiatry; ATTEND Psychiatry & Neurology Psychiatry
PROC: GZHZZZZ Group Psychotherapy (ICD-10-PCS; principal; 2018-10-01)
PROC: GZ56ZZZ Individual Psychotherapy, Supportive (ICD-10-PCS; 2018-10-01)
DX: F31.4 Bipolar disorder, current episode depressed, severe, without psychotic features (principal); F11.23 Opioid dependence with withdrawal; F14.90 Cocaine use, unspecified, uncomplicated; E78.00 Pure hypercholesterolemia, unspecified; F43.10 Post-traumatic stress disorder, unspecified; F60.3 Borderline personality disorder

== ENCOUNTER 2019-03-04 05:11 | Inpatient (IN) | payer MEDICAID ==
[2019-03-04 05:11] VITALS: BMI 30.7
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
[2019-03-04 06:26] LABS: BASO % 0.7 % (0.0-2.0); EOS # 0.1 K/uL (0.0-0.7); EOS % 1.2 % (0.0-4.0); HEMOGLOBIN 14.3 g/dL (11.0-16.0); LYMPH # 1.9 K/uL (1.0-4.3); LYMPH % 30.4 % (20.0-40.0); MEAN CELL VOLUME 91.4 fL (81.0-99.0); MEAN CORPUSCULAR HEMOGLOBIN 31.2 pg (27.0-31.0); MEAN CORPUSCULAR HGB CONC 34.1 g/dL (33.0-37.0); MEAN PLATELET VOLUME 8.7 fL (7.2-11.7); MONO # 0.6 K/uL (0.0-0.8); NEUT # 3.6 K/uL (1.8-7.0); NEUT % 57.7 % (50.0-75.0); RBC 4.6 Mil/uL (3.80-5.20); RED CELL DISTRIBUTION WIDTH 14.1 % (11.5-14.5); WHITE BLOOD COUNT 6.2 K/uL (4.8-10.8)
[2019-03-04 06:42] LABS: ALB/GLOB RATIO 1.2 (1.0-2.1); ALBUMIN 4.3 g/dL (3.5-5.0); ALT/SGPT 33 U/L (9-52); AST/SGOT 52 U/L (14-36); BLOOD UREA NITROGEN 12 mg/dL (7-17); CALCIUM 9.8 mg/dl (8.6-10.4); GFR NON-AFRICAN AMERICAN 55
[2019-03-04] MEDS ORDERED: Sodium Chloride 0.9% 1,000 ML IV ONE (06:59)
[2019-03-04] MEDS ORDERED: Naloxone 0.4 mg/ml Inj (Adult) IVP ONE (06:59)
[2019-03-04] MEDS ORDERED: Naloxone 0.4 mg/ml Inj (Adult) ONE (07:04)
[2019-03-04] MEDS ORDERED: Sodium Chloride 0.9% 1,000 ML ONE (07:04)
[2019-03-04 07:36] LABS: ACETAMINOPHEN < 10.0 ug/mL (10.0-30.0); SALICYLATE < 1.0 mg/dL 1
[2019-03-04] MEDS ORDERED: Potassium Chloride 20 mEq/15 ml LIQ UD PO STA (07:57)
[2019-03-04] MEDS ORDERED: Potassium Chloride 20 mEq ER Tab PO ONE (10:56)
[2019-03-04 11:05] LABS: HCG,QUALITATIVE URINE NEGATIVE (NEGATIVE)
[2019-03-04 11:20] LABS: BARBITURATES, UR NEGATIVE (NEGATIVE); PHENCYCLIDINE, UR NEGATIVE (NEGATIVE)
[2019-03-04 11:23] LABS: SQUAMOUS EPITHIAL 13 /hpf (0-5); URINE BACTERIA OCC (<OCC); URINE BILIRUBIN NEGATIVE (NEGATIVE); URINE BLOOD NEGATIVE (NEGATIVE); URINE CLARITY Turbid (Clear); URINE COLOR Amber (YELLOW); URINE GLUCOSE (UA) NORMAL (Normal); URINE HYALINE CAST >20 /lpf (0-2); URINE LEUKOCYTE ESTERASE 1+ Leu/uL (Negative)
[2019-03-04 11:24] LABS: URINE PROTEIN 1+ mg/dL (NEGATIVE)
[2019-03-04 11:25] LABS: BENZODIAZEPINES, UR POSITIVE (NEGATIVE); OPIATES, UR POSITIVE (NEGATIVE)
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
[2019-03-04] MEDS ORDERED: Aluminum Hydroxide/Magnesium Hydroxide Susp (30 mL) PO PRN (13:41)
--- NOTE | 2019-03-04 13:50 | PCM.BM ---
<Pina Moctezuma - Last Filed: 03/04/19 13:47> Treatment Plan Problems - Problems identified on initial assessmt Suicidal Ideations Date Initiated: 03/04/19 Time Initiated: 13:47 Assessment reference: NA Status: Active Self Harm Date Initiated: 03/04/19 Time Initiated: 13:48 Assessment reference: NA Status: Active Treatment assets and liabiliti Patient Assests: ADL independent, physically healthy, negotiates basic needs, cognitively intact Patient Liabilities: live alone, financial problems, substance abuse, legal issue - Milieu Protocol Maintain good personal hygiene: daily Encourage regular showers, daily Remind patient to perform daily oral care, daily Assist patient to perform ADL's Conduct patient checks and document Observation sheet: Q15 minutes Maintain personal safety: daily Monitor environment for contraband/sharps, every shift Educate patient to report safety concerns to staff, every shift Monitor environment for contraband/sharps Medication safety: Monitor for expected outcome, potential side effects: every shift, Assess barriers to learning: every shift, Assess readiness for medication education: every shift <Cecil Kern - Last Filed: 03/05/19 10:46> - Diagnosis (1) Major depression Status: Acute Interventions: 03/05/19 10:45 * Assess/adjust medications daily and /or as needed * See patient on an individual basis 7x/week to assess symptoms of depression * Monitor for side effects & effectiveness of medications * (2) Opioid abuse Status: Acute Interventions: 03/05/19 10:47 * Assess 7x/week regarding severity of withdrawal * Educate regarding risks, benefits, side effects and alternatives of medications * Use Motivational Interviewing for abstinence * Use CBT for relapse prevention * Medication management for withdrawal symptoms * Encourage medication assisted treatment * <Jenni Swan - Last Filed: 03/05/19 12:44> Family Contact Family involvement: Patient does not wish Family/SO involvement Family contact: Patient declines to allow family contact at present - Goals for Treatment Patient goals for treatment: "I [facility] to go to [facility]." Discharge/Continuing Care - Education Needs Education Needs: Patient Medication, Patient Diagnosis/Disease Process, Patient Coping Skills, Patient Placement options, Patient Community resources - Discharge Discharge Criteria: Free of Suicidal thoughts, Normal sleep pattern, Ability to care for self, No longer exhibiting s/s of withdrawal, Reduction of target symptoms Discharge to:: Home - Treatment Team Participation Discussed with Family/SO: No Was Patient/Family/SO present at Treatment Team Meeting: Yes
[2019-03-05] MEDS: Potassium Chloride 20 mEq ER Tab PO SCH (10:07)
--- NOTE | 2019-03-05 10:47 | PCM.PYCHPN ---
Psychiatric Progress Note - Psychiatric Progress Note Patient seen today, length of contact: 15 min Patient Chief Complaint: I am feeling depressed. Problems Identified/Issues Discussed: Patient was seen and evaluated, chart reviewed and discussed the staff. Patient reports depressed mood, at times feelings of hopelessness and helplessness and worthlessness. She reports poor sleep and poor appetite. she reports irritability, agitation and racing thoughts. She still reports withdrawal symptoms including nausea, vomiting, cramps, joint pains, headaches and anxiety. However she is taking medication but denies any side effects. Supportive therapy was given Medication Change: Yes Medical Record Reviewed: Yes Mental Status Examination - Cognitive Function Orientation: Person, Place, Situation, Time Memory: Intact Concentration: Poor Association: WNL Fund of Knowledge: Poor - Mood Mood: Depressed, Anxious - Affect Affect: Constricted, Depressed - Speech Speech: Soft - Formal Thought Process Formal Thought Process: No Impairment - Suicidal Ideation Suicidal Ideation: No - Homicidal Ideation Homicidal Ideation: No Goal/Treatment Plan - Goal/Treatment Plan Need for Continued Stay: Remain at risks for inpatient hospitalization Progress Toward Problem(s) and Goals/Treatment Plan: Bipolar depressed severe with psychotic features Opioid use disorder severe Opioid withdrawal Cocaine use disorder severe CBT Psychoeducation Supportive therapy and group therapy Trazodone for insomnia Seroquel for mood Methadone taper Withdrawal medications including multivitamin/Zofran/imodium. Neurontin for augmentation Buspar for anxiety
[2019-03-06] MEDS: Potassium Chloride 20 mEq ER Tab PO SCH (09:23)
[2019-03-07] MEDS: Potassium Chloride 20 mEq ER Tab PO SCH (09:23)
[2019-03-07] MEDS ORDERED: Pneumococcal 23-Valent Vaccine IM ONE (10:00)
--- NOTE | 2019-03-07 10:28 | PCM.PYCHPN ---
Psychiatric Progress Note - Psychiatric Progress Note Patient seen today, length of contact: 15 min Patient Chief Complaint: I am feeling little better. Problems Identified/Issues Discussed: Patient was seen and evaluated, chart reviewed and discussed the staff. She reports irritability, agitation and racing thoughts. Patient reports some improvement in the depressed mood, and feelings of hopelessness and helplessness. She reports some improvement in sleep and appetite. She reports some improvement in withdrawal symptoms as well. However she is taking medication but denies any side effects. Supportive therapy was given Medication Change: Yes Medical Record Reviewed: Yes Mental Status Examination - Cognitive Function Orientation: Person, Place, Situation, Time Memory: Intact Concentration: Poor Association: WNL Fund of Knowledge: Poor - Mood Mood: Depressed, Anxious - Affect Affect: Constricted, Depressed - Speech Speech: Soft - Formal Thought Process Formal Thought Process: No Impairment - Suicidal Ideation Suicidal Ideation: No - Homicidal Ideation Homicidal Ideation: No Goal/Treatment Plan - Goal/Treatment Plan Need for Continued Stay: Remain at risks for inpatient hospitalization Progress Toward Problem(s) and Goals/Treatment Plan: Bipolar depressed severe with psychotic features Opioid use disorder severe Opioid withdrawal Cocaine use disorder severe CBT Psychoeducation Supportive therapy and group therapy Trazodone for insomnia Seroquel for mood Methadone taper Withdrawal medications including multivitamin/Zofran/imodium. Neurontin for augmentation Buspar for anxiety
[2019-03-08] MEDS: Potassium Chloride 20 mEq ER Tab PO SCH (09:11)
[2019-03-08 12:33] LABS: ALB/GLOB RATIO 1.4 (1.0-2.1); ALT/SGPT 27 U/L (9-52); AST/SGOT 54 U/L (14-36); BLOOD UREA NITROGEN 11 mg/dL (7-17); CALCIUM 9.2 mg/dl (8.6-10.4); GFR NON-AFRICAN AMERICAN > 60
--- NOTE | 2019-03-08 15:51 | CP.PCM.CON ---
<PraveenPam SChris - Last Filed: 03/08/19 15:48> History of Present Illness - History of Present Illness History of Present Illness: Medicine Consult Note: Patient was seen and examined at bedside for evaluation of an abscess on the left thigh. Patient states she has had abscess there previously and sometimes she does her own I&Ds. She states the last I&D she had was August 2018. She s tates she usually uses that area for IV drug use and specifically cocaine which sometimes "gets stuck there". Patient denies pain, fever, chills or swelling. Review of Systems - Constitutional Constitutional: absent: Chills, Fever - Musculoskeletal Musculoskeletal: absent: Atrophy, Joint Swelling, Numbness, Tingling Past Patient History - Infectious Disease Hx of Infectious Diseases: None - Tetanus Immunizations Tetanus Immunization: Unknown - Past Medical History & Family History Past Medical History?: Yes - Past Social History Smoking Status: Light Smoker < 10 Cigarettes Daily - CARDIAC Hx Cardiac Disorders: No Hx Hypertension: Yes - PULMONARY Hx Tuberculosis: No - NEUROLOGICAL HX Cerebrovascular Accident: No Hx Seizures: No - HEENT Hx HEENT Problems: Yes (WEARS RX GLASSES,CHRONIC TONSILLITIS) - RENAL Hx Chronic Kidney Disease: No - ENDOCRINE/METABOLIC Hx Endocrine Disorders: No - HEMATOLOGICAL/ONCOLOGICAL Hx Cancer: No Hx Human Immunodeficiency Virus (HIV): No - INTEGUMENTARY Hx Dermatological Problems: No Other/Comment: prior abscesses, Tattoos, Piercings - MUSCULOSKELETAL/RHEUMATOLOGICAL Hx Musculoskeletal Disorders: Yes Hx Falls: Yes - GASTROINTESTINAL Hx Diverticulitis: Yes Hx Gall Bladder Disease: Yes Hx Gastritis: Yes - GENITOURINARY/GYNECOLOGICAL Hx Sexually Transmitted Disorders: No - PSYCHIATRIC Hx Substance Use: Yes - SURGICAL HISTORY Hx Cholecystectomy: Yes Hx Tonsillectomy: Yes (09/2013) - ANESTHESIA Hx Anesthesia: Yes Hx Anesthesia Reactions: No Hx Malignant Hyperthermia: No Meds Allergies/Adverse Reactions: Allergies Allergy/AdvReac Type Severity Reaction Status Date / Time adhesive tape Allergy RASH Verified 03/04/19 05:32 - Medications Medications: Current Medications Al Hydrox/Mg Hydrox/Simethicone (Maalox 30 Ml) 30 ml PO TID PRN PRN Reason: Indigestion / Heartburn Buspirone HCl (Buspar) 10 mg PO BID NEHA Last Admin: 03/08/19 09:09 Dose: 10 mg Clonidine HCl (Catapres) 0.1 mg PO Q4 PRN PRN Reason: COWS Score More or Equal to 5 Last Admin: 03/08/19 09:37 Dose: 0.1 mg Dicyclomine HCl (Bentyl) 10 mg PO Q6 PRN PRN Reason: Muscle spasm Last Admin: 03/08/19 13:48 Dose: 10 mg Gabapentin (Neurontin) 400 mg PO TID [facility] Last Admin: 03/08/19 13:48 Dose: 400 mg Hydroxyzine HCl (Atarax) 50 mg PO Q6 PRN PRN Reason: Anxiety Last Admin: 03/07/19 19:30 Dose: 50 mg Ibuprofen (Motrin Tab) 600 mg PO Q8 PRN PRN Reason: Pain, moderate (4-7) Last Admin: 03/07/19 12:13 Dose: 600 mg Loperamide HCl (Imodium) 2 mg PO Q8 PRN PRN Reason: Diarrhea Mirtazapine (Remeron) 15 mg PO HS [facility] Last Admin: 03/07/19 21:20 Dose: 15 mg Nicotine (Nicoderm Cq) 1 patch TD DAILY [facility] Last Admin: 03/08/19 09:09 Dose: 1 patch Ondansetron HCl (Zofran Tab) 4 mg PO Q8 PRN PRN Reason: Nausea/Vomiting Paroxetine HCl (Paxil) 10 mg PO DAILY [facility] Last Admin: 03/08/19 09:09 Dose: 10 mg Potassium Chloride (K-Dur 20 Meq Er Tab) 40 meq PO DAILY [facility] Last Admin: 03/08/19 09:11 Dose: Not Given Prazosin HCl (Minipress) 1 mg PO [facility] Last Admin: 03/07/19 21:20 Dose: 1 mg Pseudoephedrine HCl (Sudafed Tab) 60 mg PO QID PRN PRN Reason: Nasal/Sinus Congestion Quetiapine Fumarate (Seroquel) 100 mg PO BID [facility] Last Admin: 03/08/19 09:09 Dose: 100 mg Physical Exam - Constitutional Appears: Non-toxic, No Acute Distress - Head Exam Head Exam: ATRAUMATIC, NORMAL INSPECTION - Eye Exam Eye Exam: EOMI, Normal appearance - ENT Exam ENT Exam: Mucous Membranes Moist - Extremities Exam Additional comments: left thigh- small area of scar tissue; not fluctuant, red, or erythematous Results - Vital Signs Recent Vital Signs: Last Vital Signs Temp 97.0 F L 03/08/19 06:34 Pulse 74 03/08/19 15:39 Resp 20 03/08/19 06:34 BP 105/66 03/08/19 15:39 Pulse Ox 98 03/04/19 07:25 - Labs Result Diagrams: 03/04/19 06:19 03/08/19 12:00 Labs: Laboratory Results - last 24 hr 03/08/19 12:00 Sodium 138 Potassium 4.6 Chloride 107 Carbon Dioxide 26 Anion Gap 10 BUN 11 Creatinine 0.7 Est GFR ( Amer) > 60 Est GFR (Non-Af Amer) > 60 Random Glucose 106 H Calcium 9.2 Total Bilirubin 0.3 AST 54 H ALT 27 Alkaline Phosphatase 79 Total Protein 6.9 Albumin 4.0 Globulin 2.9 Albumin/Globulin Ratio 1.4 Assessment & Plan - Assessment and Plan (Free Text) Assessment: Evaluation of Left Thigh Abscess - Scar Tissue was observed - Discussed with patient if the area becomes red, warm or erythematous or if she develops fever or chills to tell her primary care team physician Thank you for this consult. Please re-consult if needed Case discussed with Dr. Silvio Morton PGY-2 <Anamaria Anguiano - Last Filed: 03/08/19 17:25> Meds - Medications Medications: Current Medications Al Hydrox/Mg Hydrox/Simethicone (Maalox 30 Ml) 30 ml PO TID PRN PRN Reason: Indigestion / Heartburn Buspirone HCl (Buspar) 10 mg PO BID [facility] Last Admin: 03/08/19 17:08 Dose: 10 mg Clonidine HCl (Catapres) 0.1 mg PO Q4 PRN PRN Reason: COWS Score More or Equal to 5 Last Admin: 03/08/19 09:37 Dose: 0.1 mg Dicyclomine HCl (Bentyl) 10 mg PO Q6 PRN PRN Reason: Muscle spasm Last Admin: 03/08/19 13:48 Dose: 10 mg Gabapentin (Neurontin) 400 mg PO TID NEHA Last Admin: 03/08/19 17:08 Dose: 400 mg Hydroxyzine HCl (Atarax) 50 mg PO Q6 PRN PRN Reason: Anxiety Last Admin: 03/07/19 19:30 Dose: 50 mg Ibuprofen (Motrin Tab) 600 mg PO Q8 PRN PRN Reason: Pain, moderate (4-7) Last Admin: 03/07/19 12:13 Dose: 600 mg Loperamide HCl (Imodium) 2 mg PO Q8 PRN PRN Reason: Diarrhea Mirtazapine (Remeron) 15 mg PO HS [facility] Last Admin: 03/07/19 21:20 Dose: 15 mg Nicotine (Nicoderm Cq) 1 patch TD DAILY [facility] Last Admin: 03/08/19 09:09 Dose: 1 patch Ondansetron HCl (Zofran Tab) 4 mg PO Q8 PRN PRN Reason: Nausea/Vomiting Paroxetine HCl (Paxil) 10 mg PO DAILY [facility] Last Admin: 03/08/19 09:09 Dose: 10 mg Potassium Chloride (K-Dur 20 Meq Er Tab) 40 meq PO DAILY [facility] Last Admin: 03/08/19 09:11 Dose: Not Given Prazosin HCl (Minipress) 1 mg PO HS [facility] Last Admin: 03/07/19 21:20 Dose: 1 mg Pseudoephedrine HCl (Sudafed Tab) 60 mg PO QID PRN PRN Reason: Nasal/Sinus Congestion Quetiapine Fumarate (Seroquel) 100 mg PO BID [facility] Last Admin: 03/08/19 17:08 Dose: 100 mg Results - Vital Signs Recent Vital Signs: Last Vital Signs Temp 97.0 F L 03/08/19 06:34 Pulse 74 03/08/19 15:39 Resp 20 03/08/19 06:34 BP 105/66 03/08/19 15:39 Pulse Ox 98 03/04/19 07:25 - Labs Result Diagrams: 03/04/19 06:19 03/08/19 12:00 Labs: Laboratory Results - last 24 hr 03/08/19 12:00 Sodium 138 Potassium 4.6 Chloride 107 Carbon Dioxide 26 Anion Gap 10 BUN 11 Creatinine 0.7 Est GFR ( Amer) > 60 Est GFR (Non-Af Amer) > 60 Random Glucose 106 H Calcium 9.2 Total Bilirubin 0.3 AST 54 H ALT 27 Alkaline Phosphatase 79 Total Protein 6.9 Albumin 4.0 Globulin 2.9 Albumin/Globulin Ratio 1.4 Attending/Attestation - Attestation I have personally seen and examined this patient.: Yes I have fully participated in the care of the patient.: Yes I have reviewed all pertinent clinical information: Yes Notes (Text): She is an active IV drug user seen for possible left thigh abscess/infection Patient had I and D in august 2018 for abscess due to drug use . Its fibrous tissue ,no redness,no signs of infection No antibiotics needed.
--- NOTE | 2019-03-08 21:39 | PCM.PYCHPN ---
Psychiatric Progress Note - Psychiatric Progress Note Patient seen today, length of contact: 15 min Patient Chief Complaint: I am not feeling well, can I get extra 5 mg of methadone. Problems Identified/Issues Discussed: Patient seen, chart reviewed, case discussed with the staff. Issues related to illness and treatment were discussed with the patient and staff. Tolerating treatment very well. Reported compliant with treatment with no adverse effects. Patient has done with her methadone taper yesterday. Still reporting feeling nausea, sweating, body aches and nervousness. Requesting for methadone 5 mg. Education provided to the patient and was given clonidine instead. Aftercare discussed with the patient in detail. Patient wants to go to a program every day. Discussed with patient about methadone maintenance versus Suboxone. Patient will decide. Mood reported as anxious. Affect appropriate. Patient needs more time for stabilization. Denied any delusions, auditory or visual hallucinations, no suicidal ideations or homicidal ideations at the time of evaluation. Medical Problems: Hypertension Brain aneurysm. Diagnostic Results: Reviewed DSM 5 Symptoms Update: Some improvement with treatment Medication Change: Yes (Started Macrobid for UTI) Medical Record Reviewed: Yes Consults ordered or reviewed: Ordered and reviewed Mental Status Examination - Cognitive Function Orientation: Person, Place, Situation, Time Memory: Intact Attention: WNL Concentration: WNL Association: [facility] Fund of Knowledge: [facility] Decription of patient's judgement and insights: Fair - Mood Mood: Anxious - Affect Affect: Other (Appropriate) - Speech Speech: Soft - Formal Thought Process Formal Thought Process: No Impairment Psychotic Thoughts and Behaviors: None - Suicidal Ideation Suicidal Ideation: No - Homicidal Ideation Homicidal Ideation: No Goal/Treatment Plan - Goal/Treatment Plan Need for Continued Stay: Remain at risks for inpatient hospitalization, Discharge may exacerbated symptoms, Severe functional impairment Progress Toward Problem(s) and Goals/Treatment Plan: Patient education. Supportive therapy. CBT for relapse prevention. MT for abstinence. Will start Macrobid 100 mg twice a day for 5 days for UTI. Continue treatment as before. Aftercare discussed with patient in detail. Estimated Date of D/C: 03/12/19 - Smoking Cessation Smoking Cessation Initiated: Yes
[2019-03-09] MEDS: Potassium Chloride 20 mEq ER Tab PO SCH (09:55)
[2019-03-10] MEDS: Potassium Chloride 20 mEq ER Tab PO SCH (09:10)
--- NOTE | 2019-03-10 21:02 | PCM.PYCHPN ---
Psychiatric Progress Note - Psychiatric Progress Note Patient seen today, length of contact: 15 min Patient Chief Complaint: I am not feeling well. I was hallucinating, was seeing my dad father. Problems Identified/Issues Discussed: Patient seen, chart reviewed, case discussed with the staff. Issues related to illness and treatment were discussed with the patient and staff. Tolerating treatment very well. Reported compliant with treatment with no adverse effects. Patient reported that she is not feeling well, was irritable. Also that she was hallucinating in the morning, was seeing her father.Will start Haldol 5 mg p.o. every 6 hours as needed for hallucinations, agitation or mood stabilization. Patient agreed with the plan. Aftercare discussed with the patient in detail again in the presence of team. Patient wants to go to a program every day. Discussed with patient about methadone maintenance versus Suboxone. Patient will decide. Mood reported as anxious. Affect appropriate. Patient needs more time for stabilization. Denied any delusions, auditory or visual hallucinations, no suicidal ideations or homicidal ideations at the time of evaluation. Medical Problems: Hypertension Brain aneurysm. Diagnostic Results: Reviewed DSM 5 Symptoms Update: Some improvement with treatment. Medication Change: No Medical Record Reviewed: Yes Consults ordered or reviewed: Reviewed Mental Status Examination - Cognitive Function Orientation: Person, Place, Situation, Time Memory: Intact Attention: WNL Concentration: WNL Association: [facility] Fund of Knowledge: [facility] Decription of patient's judgement and insights: Fair - Mood Mood: Anxious - Affect Affect: Other (Appropriate) - Speech Speech: Soft - Formal Thought Process Formal Thought Process: No Impairment Psychotic Thoughts and Behaviors: None - Suicidal Ideation Suicidal Ideation: No - Homicidal Ideation Homicidal Ideation: No Goal/Treatment Plan - Goal/Treatment Plan Need for Continued Stay: Remain at risks for inpatient hospitalization, Discharge may exacerbated symptoms, Severe functional impairment Progress Toward Problem(s) and Goals/Treatment Plan: Patient education. Supportive therapy. CBT for relapse prevention. NC for abstinence. Will start Haldol 5 mg p.o. every 6, PRN. Continue rest of the treatment as before. Aftercare discussed with patient in detail. Estimated Date of D/C: 03/12/19 - Smoking Cessation Smoking Cessation Initiated: Yes
[2019-03-11 06:14] VITALS: O2SAT 98
[2019-03-11] MEDS: Potassium Chloride 20 mEq ER Tab PO SCH (09:28)
--- NOTE | 2019-03-11 14:51 | PCM.PYCHPN ---
Psychiatric Progress Note - Psychiatric Progress Note Patient seen today, length of contact: 15 min Patient Chief Complaint: I am still not feeling well. I was still hallucinating, was seeing my dad father. Problems Identified/Issues Discussed: Patient seen, chart reviewed, case discussed with the staff. Issues related to illness and treatment were discussed with the patient and staff. Tolerating treatment very well. Reported compliant with treatment with no adverse effects. Patient reported that she is still not feeling well. Also that she was hallucinating, was seeing her father. Patient was asking frequently for methadone. Staff reported that patient was feeling better except we will hallucinations for which she is taking Haldol and feeling better after taking Haldol. Aftercare discussed with the patient. Mood reported as anxious. Affect appropriate. Patient needs more time for stabilization. Denied any delusions, auditory or visual hallucinations, no suicidal ideations or homicidal ideations at the time of evaluation. Medical Problems: Hypertension Brain aneurysm. Diagnostic Results: Reviewed DSM 5 Symptoms Update: Some improvement with treatment. Medication Change: No Medical Record Reviewed: Yes Consults ordered or reviewed: Reviewed Mental Status Examination - Cognitive Function Orientation: Person, Place, Situation, Time Memory: Intact Attention: WNL Concentration: WNL Association: [facility] Fund of Knowledge: [facility] Decription of patient's judgement and insights: Fair - Mood Mood: Anxious - Affect Affect: Other (Appropriate) - Speech Speech: Soft - Formal Thought Process Formal Thought Process: No Impairment Psychotic Thoughts and Behaviors: None - Suicidal Ideation Suicidal Ideation: No - Homicidal Ideation Homicidal Ideation: No Goal/Treatment Plan - Goal/Treatment Plan Need for Continued Stay: Remain at risks for inpatient hospitalization, Discharge may exacerbated symptoms, Severe functional impairment Progress Toward Problem(s) and Goals/Treatment Plan: Patient education. Supportive therapy. CBT for relapse prevention. NE for abstinence. Continue treatment as before. Patient will go to [facility] program in [place] for follow-up care after discharge from the hospital. Estimated Date of D/C: 03/12/19 - Smoking Cessation Smoking Cessation Initiated: Yes
[2019-03-12 06:45] VITALS: BP 98/64; PULSE 71; RESP 18; TEMP 97.5
[2019-03-12] MEDS: Potassium Chloride 20 mEq ER Tab PO SCH (09:32)
--- NOTE | 2019-03-12 16:05 | PCM.PYCHDC ---
Mental Status Examination - Mental Status Examination Orientation: Person, Place, Situation, Time Memory: Intact Mood: Neutral Affect: Other (Appropriate) Speech: Appropriate Attention: WNL Concentration: WNL Association: [facility] Fund of Knowledge: [facility] Formal Thought Process: No Impairment Description of patient's judgement and insight: Fair Psychotic Thoughts and Behaviors: None Suicidal Ideation: No Current Homicidal Ideation?: No Discharge Summary - Discharge Note Reason for Hospitalization: Bipolar depressed severe with psychotic features Opioid use disorder severe Opioid withdrawal Cocaine use disorder severe Sedated/hypnotic use disorder severe Laboratory Data: Reviewed Consultations:: List each consultation separately and include: 1. Reason for request. 2. Findings. 3. Follow-up Consultations: Reviewed Summary of Hospital Course include:: 1. Description of specific treatment plan utilized for patients during their course of treatmen. 2. Summarize the time- course for resolution of acute symptoms and/or regressed behaviors. 3. Describe issues identified and worked on during hospitalization. 4. Describe medication utilized. 5. Describe medical problems identified and treated. 6. Reassessment of suicide risk Summary of Hospital Course: Patient is 38 y/o female who came to the [facility] ED, for depressed mood, and suicide attempt. Pt states that she "wanted to OD on heroin." Patient reports history of multiple inpatient psychiatric hospitalizations. However she denies any history of follow-up with any psychiatrist. As per the patient, yesterday she became increasingly depressed and she injected 40 bags of heroin to kill herself. Pt identifies the trigger for her suicidal thoughts and actions as the passing of her father, brother, and murder of her son in 2012. Pt admits to suicide attempts in her lifetime, but refused to provide information regarding same in reference to how many attempts, when they were, and the met hodologies of said attempts. Patient reports history of detoxes at [facility] and [facility] in the past during psychaitric admissions. Pt has also been to rehab at [facility]. Pt reports using heroin and Xanax daily, with last use of both substances being yesterday. Pt reports using 30-40 bags heroin intranasally daily x10 years and 8mg of illicit Xanax via intranasal and oral use daily x10 years. She reports depressed mood, feelings of hopelessness, helplessness and worthlessness. She also reports poor sleep and poor appetite. She reports at times irritability, agitation and racing thoughts. She reports withdrawal symptoms including nausea, vomiting, shakes, anxiety, cramps and joint pains. She reports visual hallucinations and paranoia however she denies any auditory hallucinations. Past medical history HTN and brain aneurysm During her stay in the hospital patient was treated with methadone taper for opioid withdrawal symptoms. Patient was also started on other medications including mirtazapine, paroxetine, prazosin, Seroquel and other as needed medications. Patient was attending groups and other activities on the unit. Later patient was also started on Haldol as needed for visual hallucinations. Patient started feeling better with the above treatment. Today patient was stable, had no withdrawal symptoms. Her mood symptoms were also stable. Today patient was stable and was ready for discharge from the hospital. At the time of her evaluation and discharge, patient was awake, alert and oriented x3. Patient had no delusions, no auditory or visual hallucinations, no suicidal ideations or homicidal ideations at the time of her evaluation and discharge. Patient was discharged in a stable condition. - Final Diagnosis (DSM 5) Condition upon Discharge: STABLE Disposition: HOME/ ROUTINE Follow-up Treatment Plan: Patient will go to [facility] rehabilitation in [place] for follow-up care after discharge from the hospital. Prescriptions/Medication Reconciliation: busPIRone [Buspar] 10 mg PO BID #60 tab Gabapentin [Neurontin] 400 mg PO TID #90 tab Mirtazapine [Remeron] 15 mg PO HS #30 tab Nitrofurantoin Macrocrystals [Macrobid] 100 mg PO Q12H #7 cap PARoxetine [Paxil] 10 mg PO DAILY #30 tab Prazosin HCL [Minipress] 1 mg PO HS #30 cap QUEtiapine [Seroquel] 100 mg PO BID #60 tab - Smoking Cessation Smoking Cessation Medication prescribed: No - Antipsychotic Medications Pt discharged on 2 or more routine antipsychotic medications: No
== END 2019-03-12 10:40 | disposition home or self-care (01) | DRG 430 ==
LOC: C.ER 05:11 → C.5E 12:39
PROVIDERS: ADMIT Psychiatry & Neurology Psychiatry; ATTEND Psychiatry & Neurology Psychiatry
PROC: GZ3ZZZZ Medication Management (ICD-10-PCS; principal; 2019-03-04)
PROC: GZHZZZZ Group Psychotherapy (ICD-10-PCS; 2019-03-04)
PROC: GZ56ZZZ Individual Psychotherapy, Supportive (ICD-10-PCS; 2019-03-04)
PROC: HZ81ZZZ Medication Management for Substance Abuse Treatment, Methadone Maintenance (ICD-10-PCS; 2019-03-04)
PROC: HZ2ZZZZ Detoxification Services for Substance Abuse Treatment (ICD-10-PCS; 2019-03-04)
DX: F31.5 Bipolar disorder, current episode depressed, severe, with psychotic features (principal); F11.23 Opioid dependence with withdrawal; F14.20 Cocaine dependence, uncomplicated; F13.20 Sedative, hypnotic or anxiolytic dependence, uncomplicated; L02.416 Cutaneous abscess of left lower limb; N39.0 Urinary tract infection, site not specified; T40.1X2A Poisoning by heroin, intentional self-harm, initial encounter; T42.4X2A Poisoning by benzodiazepines, intentional self-harm, initial encounter; R45.851 Suicidal ideations; I10 Essential (primary) hypertension; F41.9 Anxiety disorder, unspecified; G47.00 Insomnia, unspecified; F17.210 Nicotine dependence, cigarettes, uncomplicated; G43.909 Migraine, unspecified, not intractable, without status migrainosus; D64.9 Anemia, unspecified; E78.00 Pure hypercholesterolemia, unspecified; Y92.9 Unspecified place or not applicable; Z86.79 Personal history of other diseases of the circulatory system; Z90.49 Acquired absence of other specified parts of digestive tract

== ENCOUNTER 2019-04-03 23:47 | Inpatient (IN) | payer MEDICAID ==
[2019-04-03 23:48] VITALS: BMI 30.7
[2019-04-04] MEDS ORDERED: Sodium Chloride 0.9% 1,000 ML IV ONE ×2 (02:17→05:12)
[2019-04-04] MEDS ORDERED: Sodium Chloride 0.9% 1,000 ML ONE (03:29)
--- NOTE | 2019-04-04 03:38 | C.PDOC ---
History Of Present Illness Patient presents to ED for psychiatric evaluation, states she has been feeling depressed and is hearing voices. She admits to using heroin (IVDA) today, and also states she took (approx) 10 tabs of Seroquel 100mg and 10 tabs of Remeron 15mg. She denies current physical complaints. PMHx: gastritis, diverticulitis, anxiety/depression, HTN, hyperlipidemia, migraines Time Seen by Provider: 04/04/19 00:07 Chief Complaint (Nursing): Psychiatric Evaluation History Per: Patient History/Exam Limitations: no limitations Onset/Duration Of Symptoms: Hrs Current Symptoms Are (Timing): Still Present Modifying Factor(s): Narcotics, Other (seroquel and remeron) Severity: Moderate Associated Symptoms: Depression, Suicidal Thoughts Past Medical History Reviewed: Historical Data, Nursing Documentation, Vital Signs Vital Signs: Last Vital Signs Temp 98.6 F 04/03/19 23:56 Pulse 96 H 04/03/19 23:56 Resp 20 04/03/19 23:56 BP 112/73 04/03/19 23:56 Pulse Ox 95 04/03/19 23:56 Primary Care Provider: Kalpesh Oneill - Medical History PMH: Anemia, Anxiety, Depression, Diverticulitis, Gastritis, Gall Bladder Disease, HTN, Hypercholesterolemia, Migraine Surgical History: Cholecystectomy, Tonsillectomy (09/2013) - [facility] Procedures APPLICATION OF SPLINT (04/06/14) CLOSED ENDOSCOPIC BIOPSY OF LARGE INTESTINE (05/02/13) DETOXIFICATION SERVICES FOR SUBSTANCE ABUSE TREATMENT (03/04/19) ESOPHAGOGASTRODUODENOSCOPY [EGD] W/CLOSED BIOPSY (01/08/14) GROUP PSYCHOTHERAPY (03/04/19) INDIVIDUAL PSYCHOTHERAPY, SUPPORTIVE (03/04/19) INJECT/INFUSE ELECTROLYT (08/31/14) INJECT/INFUSE NEC (08/31/14) LAPAROSCOP LYSIS-PERITONEAL ADHES (04/10/13) LAPAROSCOPIC CHOLECYSTECTOMY (04/10/13) LAPAROSCOPIC REPAIR UMBILICAL HERNIA W GRAFT OR PROSTHESIS (04/10/13) MEDICATION MANAGEMENT (03/04/19) MEDS MGMT FOR SUBSTANCE ABUSE TREATMENT, METHADONE MAINT (03/04/19) MEDS MGMT FOR SUBSTANCE ABUSE TREATMENT, NICOTINE REPLACE (09/15/18) TONSILLECTOMY (09/26/13) TRANSFUSE NONAUT RED BLOOD CELLS IN PERIPH VEIN, PERC (12/14/17) Family History: States: No Known Family Hx - Social History Hx Tobacco Use: No Hx Alcohol Use: No Hx Substance Use: Yes - Immunization History Hx Tetanus Toxoid Vaccination: Yes Hx Influenza Vaccination: Yes Hx Pneumococcal Vaccination: Yes Review Of Systems Constitutional: Negative for: Fever, Chills Cardiovascular: Negative for: Chest Pain, Palpitations Respiratory: Negative for: Shortness of Breath Gastrointestinal: Negative for: Nausea, Vomiting, Abdominal Pain, Diarrhea Psych: Positive for: Anxiety, Depression, Suicidal ideation Physical Exam - Physical Exam Appears: Non-toxic, Other (drowsy but arousable to verbal stimuli) Skin: Other (track ayala B/L extremities ) Head: Normacephalic Eye(s): bilateral: EOMI, Other (approx 2-3mm and reactive B/L) Oral Mucosa: Moist Cardiovascular: Rhythm Regular Respiratory: Normal Breath Sounds, No Rales, No Rhonchi, No Wheezing Gastrointestinal/Abdominal: Normal Exam, Bowel Sounds, Soft, No Tenderness Extremity: Normal ROM, No Pedal Edema Pulses: Left Dorsalis Pedis: Normal, Right Dorsalis Pedis: Normal Neurological/Psych: Oriented x3, Other (able to follow commands) ED Course And Treatment - Laboratory Results Result Diagrams: 04/04/19 03:32 04/04/19 03:32 ECG: Interpreted By Me, Viewed By Me (NSR 85 bpm, normal axis, QRS 85 bpm, QTc 471ms, no acute ST/T wave changes, ) ECG Interpretation: Normal O2 Sat by Pulse Oximetry: 95 (RA) Pulse Ox Interpretation: Normal - Radiology CXR: Interpreted by Me, Viewed By Me CXR Interpretation: Yes: No Acute Disease. No: Infiltrates Progress Note: Blood work, UA, Upreg, UDS, EKG ordered and reviewed. Patient given IV bolus x2. Poison control called by me, they recommend monitoring for QRS prolongation, anticholinergic symptoms. 5:20am- Spoke with poison control again, since BP has dropped (2nd liter ordered) and it is unknown if patient t ook extended release tablets, she should be monitored for longer prior to being medically cleared. PMD is Dr. Oneill who is covered by Dr. Alvarez. Pending call back for admission. - Physician Consult Information Physician Contacted: Ruthy Alvarez Outcome Of Conversation: Discussed patient with Dr. Alvarez, agrees with obs tele for depression, SI, seroquel and remeron overdose, heroin dependece. Psychiatry consult entered. Critical Care Time - Critical Care Note Total Time (in mins): 40 Documented critical care: time excludes all time spent performing seperately billable procedures. Disposition - Disposition Disposition: HOSPITALIZED Disposition Time: 05:50 Condition: STABLE - Clinical Impression Clinical Impression: Suicidal ideation, Depression, Heroin dependence, Overdose Decision To Admit - Pt Status Changed To: Hospital Disposition Of: Observation - . Bed Request Type: Telemetry Admitting Physician: Ruthy Alvarez Patient Diagnosis: Suicidal ideation, Depression, Overdose, Heroin dependence
[2019-04-04 03:42] LABS: SQUAMOUS EPITHIAL 3 /hpf (0-5); URINE BACTERIA RARE (<OCC); URINE BILIRUBIN NEGATIVE (NEGATIVE); URINE BLOOD 3+ (NEGATIVE); URINE CLARITY Hazy (Clear); URINE COLOR Amber (YELLOW); URINE GLUCOSE (UA) NORMAL (Normal); URINE LEUKOCYTE ESTERASE 1+ Leu/uL (Negative); URINE PROTEIN NEGATIVE (NEGATIVE); URINE UROBILINOGEN NORMAL mg/dL (0.2-1.0)
[2019-04-04 03:47] LABS: HCG,QUALITATIVE URINE NEGATIVE (NEGATIVE)
[2019-04-04 03:48] LABS: BASO % 0.5 % (0.0-2.0); EOS # 0.1 K/uL (0.0-0.7); HEMOGLOBIN 14.1 g/dL (11.0-16.0); LYMPH # 2.3 K/uL (1.0-4.3); LYMPH % 44.7 % (20.0-40.0); MEAN CELL VOLUME 95.1 fL (81.0-99.0); MEAN CORPUSCULAR HEMOGLOBIN 32.3 pg (27.0-31.0); MEAN CORPUSCULAR HGB CONC 33.9 g/dL (33.0-37.0); MEAN PLATELET VOLUME 9.9 fL (7.2-11.7); MONO # 0.5 K/uL (0.0-0.8); MONO % 9.4 % (0.0-10.0); NEUT # 2.3 K/uL (1.8-7.0); NEUT % 43.4 % (50.0-75.0); NRBC % 0.1 % (0.0-2.0); RBC 4.37 Mil/uL (3.80-5.20); RED CELL DISTRIBUTION WIDTH 14.7 % (11.5-14.5); WHITE BLOOD COUNT 5.2 K/uL (4.8-10.8)
[2019-04-04 03:52] LABS: ACETAMINOPHEN < 10.0 ug/mL (10.0-30.0); SALICYLATE < 1.0 mg/dL 1
[2019-04-04 03:53] LABS: BARBITURATES, UR NEGATIVE (NEGATIVE); BENZODIAZEPINES, UR NEGATIVE (NEGATIVE); PHENCYCLIDINE, UR NEGATIVE (NEGATIVE)
[2019-04-04 03:59] LABS: ALB/GLOB RATIO 1.1 (1.0-2.1); ALBUMIN 4.3 g/dL (3.5-5.0); ALT/SGPT 51 U/L (9-52); AST/SGOT 73 U/L (14-36); BLOOD UREA NITROGEN 13 mg/dL (7-17); CALCIUM 9.4 mg/dl (8.6-10.4); GFR NON-AFRICAN AMERICAN > 60
[2019-04-04 04:00] LABS: OPIATES, UR POSITIVE (NEGATIVE)
--- NOTE | 2019-04-04 08:36 | RAD ---
Date of service: 04/04/2019 PROCEDURE: CHEST RADIOGRAPH, 1 VIEW HISTORY: overdose COMPARISON: 10/04/2018. FINDINGS: LUNGS: The lungs are well inflated and clear. PLEURA: No pneumothorax or pleural effusion. CARDIOVASCULAR: The heart is normal in size. No aortic atherosclerotic calcifications present. OSSEOUS STRUCTURES: Within normal limits for the patient's age. VISUALIZED UPPER ABDOMEN: Normal. OTHER FINDINGS: None. IMPRESSION: No acute findings.
[2019-04-04] MEDS ORDERED: Sodium Chloride 0.45% 1,000 ML IV SCH (08:45)
[2019-04-04] MEDS ORDERED: Aluminum Hydroxide/Magnesium Hydroxide Susp (30 mL) PO PRN (09:43)
--- NOTE | 2019-04-04 09:48 | PCM.PSYCH ---
Initial Psychiatric Evaluation - Initial Psychiatric Evaluation Type of Admission: Voluntary Legal Status: Capacity Chief Complaint (in patient's own words): "I am very depressed" History of Present Illness and Precipitating Events: The pt is seen, chart reviewed, and case discussed. The consult was requested for pts psych sxs including depression, suicide attempt, and hearing voices for the past few days. Pt is a 38 year old female , with 1 son, unemployed, and homeless with psych hx of anxiety, depression, bipolar disorder, and suicidal ideations. Pt took 10 tablets of 100mg of Seroquel and 10 tablets of 15mg of Remeron last night at 8:30pm 04/03/19. Pt says she [doesnt] know why took the medications, but denies wanting to kill herself. After taking the pills, patient walked herself to our ED. Pt says this is the first time she attempted to hurt herself. Now, she still has SI but no plan or urge, will follow safety plan She sniffs and shoots IV heroin. Her last use was 6pm yesterday 04/03/19. She overdosed once ( about1 month ago). She smokes 1ppd of cigarettes. Drinks 5 little airplane bottles daily of alcohol and gets shaky when she doesnt drink. She takes 4mg/day of Xanax. She uses a little cocaine occasionally. She denies marijuana use. Last admission: Pt was admitted to [facility] on 03/04/19 for depression and suicidal ideation. She reported injecting 40 bags of heroin to kill herself. The pt attributed the of her father, brother, and murder of her son in 2012 for her suicidal attempt. She also has hx of detoxes/rehab at [facility] and [facility] in the past. On discharge, pt was arranged to follow up with a methadone clinic in [place], [place]. Pt went for a few days and stopped going. She currently complains of abdominal pain and other withdrawal sxs and COWS is above 10 She was also hearing voices for the past couple of days. She denies hearing voices right now ut feels paranoid . Past psych hx: anxiety, depression, polysubstance abuse disorder, bipolar disorder, multiple admissions PMHx: gastritis, diverticulitis, HTN, HLD, migraines, brain aneurysm, history of anemia Family hx: Unknown Current Medications: Active Medications Generic Name Dose Route Start Last Admin Trade Name Freq PRN Reason Stop Dose Admin Al Hydrox/Mg Hydrox/Simethicone 30 ml 04/04/19 09:43 Maalox 30 Ml PO TID PRN Indigestion / Heartburn Chlordiazepoxide 25 mg 04/04/19 09:47 Librium PO Q6H PRN Alcohol Withdrawal Clonidine HCl 0.1 mg 04/04/19 09:43 Catapres PO Q4 PRN COWS Score More or Equal to 5 Escitalopram Oxalate 5 mg 04/04/19 10:00 Lexapro PO DAILY [facility] Folic Acid 1 mg 04/04/19 10:00 Folic Acid PO DAILY [facility] Gabapentin 300 mg 04/04/19 10:00 Neurontin PO TID [facility] Hydroxyzine HCl 25 mg 04/04/19 09:45 Atarax PO Q4H PRN Anxiety Sodium Chloride 1,000 mls @ 80 mls/hr 04/04/19 08:45 04/04/19 08:53 Sodium Chloride 0.45% IV 80 mls/hr .[id number] NEHA Administration Ibuprofen 600 mg 04/04/19 09:43 Motrin Tab PO Q6 PRN Pain, moderate (4-7) Loperamide HCl 2 mg 04/04/19 09:43 Imodium PO Q8 PRN Diarrhea Methadone HCl 0 mg 04/04/19 09:45 Methadone PO 04/08/19 09:44 Q24H NEHA Taper Multivitamins 1 tab 04/04/19 10:00 Hexavitamin PO DAILY [facility] Ondansetron HCl 4 mg 04/04/19 09:43 Zofran Tab PO Q8 PRN Nausea/Vomiting Thiamine HCl 100 mg 04/04/19 10:00 Vitamin B1 Tab PO DAILY [facility] Trazodone HCl 100 mg 04/04/19 22:00 Desyrel PO HS NEHA Past Psychiatric History - Past Psychiatric History Previous Treatment History: Inpatient Pertinent Medical Hx (Current Medical&Sleep Prob, Allergies): Allergies Allergy/AdvReac Type Severity Reaction Status Date / Time adhesive tape Allergy RASH Verified 03/04/19 05:32 Alprazolam [Xanax] 1 mg PO TID PRN 12/19/17 Mirtazapine [Remeron] 30 mg PO HS #30 tab 11/13/18 Gabapentin [Neurontin] 400 mg PO TID #90 tab 03/12/19 Mirtazapine [Remeron] 15 mg PO HS #30 tab 03/12/19 Nitrofurantoin Macrocrystals [Macrobid] 100 mg PO Q12H #7 cap 03/12/19 PARoxetine [Paxil] 10 mg PO DAILY #30 tab 03/12/19 Prazosin HCL [Minipress] 1 mg PO HS #30 cap 03/12/19 QUEtiapine [Seroquel] 100 mg PO BID #60 tab 03/12/19 busPIRone [Buspar] 10 mg PO BID #60 tab 03/12/19 Review of Systems - Psychiatric Psychiatric: Abnormal Sleep Pattern, Anhedonia, Anxiety, Depression, Difficulty Concentrating, Irritability, Mood Swings, Panic Attacks, Paranoia, Suicidal Ideation (no plan or urge now). absent: Hallucinations, Homicidal Ideation Mental Status Examination - Personal Presentation Personal Presentation: Looks stated age - Affect Affect: Constricted - Motor Activity Motor Activity: Calm - Reliability in Providing Information Reliability in Providing Information: Good - Speech Speech: Organized - Mood Mood: Depressed, Anxious - Formal Thought Process Formal Thought Process: Paranoia - Cognitive Functions Orientation: Person, Place, Situation, Time Sensorium: Alert Attention/Concentration: Easily distracted Abstract Thinking: [place] Estimate of Intelligence: Average Judgement: Imparied, as evidence by: Poor judgement Memory: Recent intact, as evidence by: Ability to recall events of the day, Remote intact, as evidenced by: Abilit to recall sig. life events - Risk Risk: Withdrawal, Diminished functioning - Strength & Assets Inventory Strength & Assets Inventory: Cooperative - Limitations Limitations: Living alone, Other DSM 5 DX - DSM 5 DSM 5 Diagnosis: Bipolar d/o - depressed, severe PTSD YASMINE Borderline personality d/o Opioid withdrawal Opioid use d/o - severe Cocaine use d/o - severe - Recommended/Plan of Treatment Treatment Recommendations and Plan of Treatment: Lexapro for depression Abilify for AH, paranboia and bipolar d/o Taper with methadone prn librium if she starts to wdw from alcohol, xanax Gabapentin for augmentation As needed medications All risks, benefits and alternatives of the meds discussed, and the pt agreed and understood. Attend groups and activities Supportive therapy and psychoeducation [place] for abstinence CBT for relapse prevention Encourage MAT Refer to rehab or IOP, and self-help groups Teach healthy lifestyle methods, i.e. diet, exercise, meditation Limit setting for borderline, and DBT Patch for nicotine 33 min Projected ELOS: 4-5 days
--- NOTE | 2019-04-04 10:07 | CP.PCM.HP ---
History of Present Illness - History of Present Illness History of Present Illness: pt came to ed admited for overdose Present on Admission - Present on Admission Any Indicators Present on Admission: No Review of Systems - Review of Systems Systems not reviewed;Unavailable: Acuity of Condition - Constitutional Constitutional: Fatigue - EENT Eyes: As Per HPI Ears: As Per HPI Nose/Mouth/Throat: As Per HPI - Breasts Breasts: As Per HPI - Respiratory Respiratory: As Per HPI - Gastrointestinal Gastrointestinal: As Per HPI - Genitourinary Genitourinary: As Per HPI - Reproductive: Female Reproductive:Female: As Per HPI - Menstruation Menstruation: As Per HPI - Musculoskeletal Musculoskeletal: As Per HPI - Integumentary Integumentary: As Per HPI - Neurological Neurological: As Per HPI - Psychiatric Psychiatric: Auditory Hallucinations, Suicidal Ideation Additional comments: pt heared voice to kill her self - Endocrine Endocrine: As Per HPI - Hematologic/Lymphatic Hematologic: As Per HPI Past Patient History - Infectious Disease Hx of Infectious Diseases: None - Tetanus Immunizations Tetanus Immunization: Unknown - Past Medical History & Family History Past Medical History?: Yes - Past Social History Smoking Status: Light Smoker < 10 Cigarettes Daily Drugs: Other - CARDIAC Hx Hypercholesterolemia: Yes Hx Hypertension: Yes - PULMONARY Hx Tuberculosis: No - NEUROLOGICAL Hx Migraine: Yes - HEENT Hx HEENT Problems: Yes (WEARS RX GLASSES,CHRONIC TONSILLITIS) - RENAL Hx Chronic Kidney Disease: No - ENDOCRINE/METABOLIC Hx Endocrine Disorders: No - HEMATOLOGICAL/ONCOLOGICAL Hx Anemia: Yes - INTEGUMENTARY Hx Dermatological Problems: No Other/Comment: prior abscesses, Tattoos, Piercings - MUSCULOSKELETAL/RHEUMATOLOGICAL Hx Musculoskeletal Disorders: Yes Hx Falls: Yes - GASTROINTESTINAL Hx Diverticulitis: Yes Hx Gall Bladder Disease: Yes Hx Gastritis: Yes - GENITOURINARY/GYNECOLOGICAL Hx Sexually Transmitted Disorders: No - PSYCHIATRIC Hx Anxiety: Yes Hx Depression: Yes Hx Substance Use: Yes - SURGICAL HISTORY Hx Cholecystectomy: Yes Hx Tonsillectomy: Yes (09/2013) - ANESTHESIA Hx Anesthesia: Yes Hx Anesthesia Reactions: No Hx Malignant Hyperthermia: No Meds Allergies/Adverse Reactions: Allergies Allergy/AdvReac Type Severity Reaction Status Date / Time adhesive tape Allergy RASH Verified 03/04/19 05:32 Physical Exam - Constitutional Appears: No Acute Distress - Head Exam Head Exam: ATRAUMATIC - Eye Exam Eye Exam: Normal appearance Pupil Exam: NORMAL ACCOMODATION - ENT Exam ENT Exam: Mucous Membranes Moist - Neck Exam Neck exam: Positive for: Full Rom - Respiratory Exam Respiratory Exam: Clear to Auscultation Bilateral - Cardiovascular Exam Cardiovascular Exam: REGULAR RHYTHM - GI/Abdominal Exam GI & Abdominal Exam: Normal Bowel Sounds - Exam Exam: NORMAL INSPECTION - Extremities Exam Extremities exam: Positive for: normal inspection - Back Exam Back exam: NORMAL INSPECTION - Neurological Exam Neurological exam: Normal Gait, Oriented x3 - Psychiatric Exam Psychiatric exam: Depressed - Skin Skin Exam: Normal Color Results - Vital Signs Recent Vital Signs: Last Vital Signs Temp 97.9 F 04/04/19 07:42 Pulse 82 04/04/19 07:42 Resp 20 04/04/19 07:42 BP 106/68 04/04/19 07:42 Pulse Ox 96 04/04/19 07:42 - Labs Result Diagrams: 04/04/19 03:32 04/04/19 03:32 Labs: Laboratory Results - last 24 hr 04/04/19 04/04/19 04/04/19 03:32 03:32 03:32 WBC 5.2 RBC 4.37 Hgb 14.1 Hct 41.5 MCV 95.1 D MCH 32.3 H MCHC 33.9 RDW 14.7 H Plt Count 181 MPV 9.9 Neut % (Auto) 43.4 L Lymph % (Auto) 44.7 H [place] % (Auto) 9.4 Eos % (Auto) 2.0 Baso % (Auto) 0.5 Neut # (Auto) 2.3 Lymph # (Auto) 2.3 [place] # (Auto) 0.5 Eos # (Auto) 0.1 Baso # (Auto) 0.0 Sodium 144 Potassium 4.1 Chloride 105 Carbon Dioxide 29 Anion Gap 14 BUN 13 Creatinine 0.7 Est GFR ( Amer) > 60 Est GFR (Non-Af Amer) > 60 Random Glucose 124 H Calcium 9.4 Total Bilirubin 0.5 AST 73 H D ALT 51 Alkaline Phosphatase 88 Total Protein 8.3 Albumin 4.3 Globulin 4.0 H Albumin/Globulin Ratio 1.1 Urine Color Farzaneh Urine Clarity Hazy Urine pH 5.0 Ur Specific [place] 1.020 Urine Protein Negative Urine Glucose (UA) Normal Urine Ketones Negative Urine Blood 3+ H Urine Nitrate Positive H Urine Bilirubin Negative Urine Urobilinogen Normal Ur Leukocyte Esterase 1+ H Urine WBC (Auto) 30 H Urine RBC (Auto) 17 H Ur Squamous Epith Cells 3 Urine Bacteria Rare Urine HCG, Qual Negative Salicylates Urine Opiates Screen Urine Methadone Screen Acetaminophen Ur Barbiturates Screen Ur Phencyclidine Scrn Ur Amphetamines Screen U Benzodiazepines Scrn U Oth Cocaine Metabols U Cannabinoids Screen Alcohol, Quantitative < 10 04/04/19 04/04/19 03:32 03:32 WBC RBC Hgb Hct MCV MCH MCHC RDW Plt Count MPV Neut % (Auto) Lymph % (Auto) [place] % (Auto) Eos % (Auto) Baso % (Auto) Neut # (Auto) Lymph # (Auto) [place] # (Auto) Eos # (Auto) Baso # (Auto) Sodium Potassium Chloride Carbon Dioxide Anion Gap BUN Creatinine Est GFR ( Amer) Est GFR (Non-Af Amer) Random Glucose Calcium Total Bilirubin AST ALT Alkaline Phosphatase Total Protein Albumin Globulin Albumin/Globulin Ratio Urine Color Urine Clarity Urine pH Ur Specific [place]ck[place] Urine Protein Urine Glucose (UA) Urine Ketones Urine Blood Urine Nitrate Urine Bilirubin Urine Urobilinogen Ur Leukocyte Esterase Urine WBC (Auto) Urine RBC (Auto) Ur Squamous Epith Cells Urine Bacteria Urine HCG, Qual Salicylates < 1.0 Urine Opiates Screen Positive H Urine Methadone Screen Negative Acetaminophen < 10.0 L Ur Barbiturates Screen Negative Ur Phencyclidine Scrn Negative Ur Amphetamines Screen Negative U Benzodiazepines Scrn Negative U Oth Cocaine Metabols Positive H U Cannabinoids Screen Negative Alcohol, Quantitative Assessment & Plan - Assessment and Plan (Free Text) Assessment: drug overdose suicidal idea improved depression drug abuse Plan: transfer to [facility] care - Date & Time Date: 04/04/19 Time: 10:10
[2019-04-04] MEDS: Multiple Vitamins Tab PO SCH (10:59)
--- NOTE | 2019-04-04 12:20 | PCM.BM ---
<Saray Whatley - Last Filed: 04/04/19 12:19> Treatment Plan Problems - Problems identified on initial assessmt Depression Date Initiated: 04/04/19 Assessment reference: NA Status: Active Suicidal Ideations Date Initiated: 04/04/19 Assessment reference: NA Status: Active Treatment assets and liabiliti Patient Assests: ADL independent, physically healthy, negotiates basic needs, cognitively intact Patient Liabilities: financial problems, poor support system, substance abuse - Milieu Protocol Maintain good personal hygiene: daily Encourage regular showers, daily Remind patient to perform daily oral care, daily Assist patient to perform ADL's Conduct patient checks and document Observation sheet: Q15 minutes Maintain personal safety: every shift Educate patient to report safety concerns to staff, every shift Monitor environment for contraband/sharps Medication safety: Monitor for expected outcome, potential side effects: every shift, Assess barriers to learning: every shift, Assess readiness for medication education: every shift <Cecil Kern - Last Filed: 04/07/19 11:10> - Diagnosis (1) Bipolar 1 disorder, depressed, severe Status: Acute Interventions: 04/07/19 11:10 * Assess/adjust medications daily and /or as needed * See patient on an individual basis 7x/week to assess level of manic behaviors and stability * Discuss risks, benefits, side effects and alternatives of medications * (2) Opioid use disorder Status: Acute Interventions: 04/07/19 11:10 * Assess 7x/week regarding severity of withdrawal * Educate regarding risks, benefits, side effects and alternatives of med ications * Use Motivational Interviewing for abstinence * Use CBT for relapse prevention * Medication management for withdrawal symptoms * Encourage medication assisted treatment * <Jenni Swan - Last Filed: 04/07/19 15:44> Family Contact Family involvement: Patient does not wish Family/SO involvement Family contact: Patient declines to allow family contact at present - Goals for Treatment Patient goals for treatment: "I want to go to [facility] Discharge/Continuing Care - Education Needs Education Needs: Patient Medication, Patient Diagnosis/Disease Process, Patient Coping Skills, Patient Placement options, Patient Community resources - Discharge Discharge Criteria: Free of Suicidal thoughts, Normal sleep pattern, Ability to care for self, No longer exhibiting s/s of withdrawal, Reduction of target symptoms Discharge to:: Home - Treatment Team Participation Discussed with Family/SO: No Was Patient/Family/SO present at Treatment Team Meeting: Yes
[2019-04-04] MEDS ORDERED: Pneumococcal 23-Valent Vaccine IM ONE (15:14)
[2019-04-05] MEDS: Multiple Vitamins Tab PO SCH (09:03)
--- NOTE | 2019-04-05 11:52 | PCM.PYCHPN ---
Psychiatric Progress Note - Psychiatric Progress Note Patient seen today, length of contact: 16 min Patient Chief Complaint: "I am still sick" Problems Identified/Issues Discussed: The pt is seen, chart reviewed, case is discussed with staff. The pt is compliant with medications and reports no side-effects. Symptoms are improving but needs more time to stabilize and to avoid relapse. Pt attends groups and activities. Support given, psycho-education provided. After care discussed. Medication Change: Yes (detox changes daily) Medical Record Reviewed: Yes Mental Status Examination - Cognitive Function Orientation: Person, Place, Situation, Time Memory: Intact Attention: WNL Concentration: Poor Association: WNL Fund of Knowledge: WNL - Mood Mood: Depressed, Anxious - Affect Affect: Constricted - Speech Speech: Appropriate - Formal Thought Process Formal Thought Process: No Impairment - Suicidal Ideation Suicidal Ideation: No - Homicidal Ideation Homicidal Ideation: No Goal/Treatment Plan - Goal/Treatment Plan Need for Continued Stay: Discharge may exacerbated symptoms, Severe functional impairment Progress Toward Problem(s) and Goals/Treatment Plan: Lexapro for depression Abilify for AH, paranoia and bipolar d/o Doses are adjusted Taper with methadone prn librium if she starts to wdw from alcohol, xanax Gabapentin for augmentation As needed medications All risks, benefits and alternatives of the meds discussed, and the pt agreed and understood. Attend groups and activities Supportive therapy and psychoeducation [place] for abstinence CBT for relapse prevention Encourage MAT Refer to rehab or IOP, and self-help groups Teach healthy lifestyle methods, i.e. diet, exercise, meditation Limit setting for borderline, and DBT Patch for nicotine
[2019-04-06] MEDS: Multiple Vitamins Tab PO SCH (10:30)
--- NOTE | 2019-04-07 01:10 | PCM.PYCHPN ---
Psychiatric Progress Note - Psychiatric Progress Note Patient seen today, length of contact: 16 min Patient Chief Complaint: "I am not doing well. I can't sleep" Problems Identified/Issues Discussed: The pt is seen again, chart reviewed, and case is discussed with the team. The pt denies any side-effects from meds. Attends activities and groups, brief individual therapy provided Not ready for discharge due to ongoing symptoms and high relapse risk. After care discussed again. Medication Change: Yes (ambien) Medical Record Reviewed: Yes Mental Status Examination - Cognitive Function Orientation: Person, Place, Situation, Time Memory: Intact Attention: WNL Concentration: Poor Association: WNL Fund of Knowledge: WNL - Mood Mood: Depressed, Anxious - Affect Affect: Constricted - Speech Speech: Appropriate - Formal Thought Process Formal Thought Process: No Impairment - Suicidal Ideation Suicidal Ideation: No - Homicidal Ideation Homicidal Ideation: No Goal/Treatment Plan - Goal/Treatment Plan Need for Continued Stay: Discharge may exacerbated symptoms, Severe functional impairment Progress Toward Problem(s) and Goals/Treatment Plan: Lexapro for depression Abilify for AH, paranoia and bipolar d/o Doses are adjusted Taper with methadone prn librium if she starts to wdw from alcohol, xanax Gabapentin for augmentation As needed medications All risks, benefits and alternatives of the meds discussed, and the pt agreed and understood. Attend groups and activities Supportive therapy and psychoeducation [place] for abstinence CBT for relapse prevention Encourage MAT Refer to rehab or IOP, and self-help groups Teach healthy lifestyle methods, i.e. diet, exercise, meditation Limit setting for borderline, and DBT Patch for nicotine
[2019-04-07] MEDS: Multiple Vitamins Tab PO SCH (09:31)
--- NOTE | 2019-04-07 09:46 | PCM.PYCHPN ---
Psychiatric Progress Note - Psychiatric Progress Note Patient seen today, length of contact: 16 min Patient Chief Complaint: I am feeling depressed.' Problems Identified/Issues Discussed: Patient seen and evaluated, chart reviewed and discussed with the nurse. Pt still reports depressed mood and feelings of hopelessness and helplessness. Patient remained isolated, confined and withdrawn. She is on methadone taper and reports withdrawal symptoms including cramps, back pain and sweating She also reports some improvement in sleep. However she remained isolated and withdrawn. She is taking medications and denies any side effects Symptoms are improving but she needs more time for stabilization. Supportive therapy and psychoeducation were given. Medication Change: Yes (ambien) Medical Record Reviewed: Yes Mental Status Examination - Cognitive Function Orientation: Person, Place, Situation, Time Memory: Intact Attention: WNL Concentration: Poor Association: WNL Fund of Knowledge: WNL - Mood Mood: Depressed, Anxious - Affect Affect: Constricted, Depressed - Speech Speech: Appropriate - Formal Thought Process Formal Thought Process: No Impairment - Suicidal Ideation Suicidal Ideation: No - Homicidal Ideation Homicidal Ideation: No Goal/Treatment Plan - Goal/Treatment Plan Need for Continued Stay: Discharge may exacerbated symptoms, Severe functional impairment Progress Toward Problem(s) and Goals/Treatment Plan: Bipolar d/o - depressed, severe PTSD YASMINE Borderline personality d/o Opioid withdrawal Opioid use d/o - severe Cocaine use d/o - severe Lexapro for depression Abilify for AH, paranoia and bipolar d/o Taper with methadone prn librium if she starts to wdw from alcohol, xanax Gabapentin for augmentation As needed medications All risks, benefits and alternatives of the meds discussed, and the pt agreed and understood. Attend groups and activities Supportive therapy and psychoeducation [place] for abstinence CBT for relapse prevention Encourage MAT Refer to rehab or IOP, and self-help groups Teach healthy lifestyle methods, i.e. diet, exercise, meditation Limit setting for borderline, and DBT Patch for nicotine
--- NOTE | 2019-04-07 13:43 | CARD ---
APPROVED REPORT Date of service: 04/04/2019 EKG Measurement Heart [id number] <Conclusion> Normal sinus rhythm Normal ECG
[2019-04-08] MEDS: Multiple Vitamins Tab PO SCH (09:30)
[2019-04-09 06:36] VITALS: RESP 18
[2019-04-09] MEDS: Multiple Vitamins Tab PO SCH (09:03)
[2019-04-10] MEDS: Multiple Vitamins Tab PO SCH (09:33)
[2019-04-10] MEDS ORDERED: buPROPion SR 150 MG TABLET PO SCH (11:15)
[2019-04-10] MEDS ORDERED: buPROPion SR 150 MG TABLET PO ONE (14:00)
[2019-04-10 21:37] VITALS: O2SAT 88
[2019-04-11 08:53] LABS: ALB/GLOB RATIO 1.1 (1.0-2.1); ALBUMIN 4.4 g/dL (3.5-5.0); ALT/SGPT 41 U/L (9-52); AST/SGOT 48 U/L (14-36); BLOOD UREA NITROGEN 17 mg/dL (7-17); CALCIUM 9.3 mg/dl (8.6-10.4); GFR NON-AFRICAN AMERICAN > 60
[2019-04-11] MEDS: buPROPion 150 mg/24 Hours XL Tab PO SCH (09:32)
[2019-04-11] MEDS: Multiple Vitamins Tab PO SCH (09:33)
[2019-04-12 06:32] VITALS: BP 103/60; PULSE 81; TEMP 98.4
[2019-04-12] MEDS: buPROPion 150 mg/24 Hours XL Tab PO SCH (09:12)
[2019-04-12] MEDS: Multiple Vitamins Tab PO SCH (09:15)
--- NOTE | 2019-04-12 13:11 | PCM.PYCHDC ---
Mental Status Examination - Mental Status Examination Orientation: Person, Place, Situation, Time Memory: Intact Mood: Neutral Affect: Constricted Speech: Soft Attention: WNL Concentration: WNL Association: WNL Fund of Knowledge: WNL Formal Thought Process: No Impairment Description of patient's judgement and insight: good, fair Psychotic Thoughts and Behaviors: denies any AVH Suicidal Ideation: No Current Homicidal Ideation?: No Discharge Summary - Discharge Note Consultations:: List each consultation separately and include: 1. Reason for request. 2. Findings. 3. Follow-up Summary of Hospital Course include:: 1. Description of specific treatment plan utilized for patients during their course of treatmen. 2. Summarize the time- course for resolution of acute symptoms and/or regressed behaviors. 3. Describe issues identified and worked on during hospitalization. 4. Describe medication utilized. 5. Describe medical problems identified and treated. 6. Reassessment of suicide risk - Diagnosis (1) Bipolar 1 disorder, depressed, severe Current Visit: No Status: Acute (2) Opioid use disorder Current Visit: No Status: Acute - Final Diagnosis (DSM 5) Condition upon Discharge: STABLE DSM 5: Bipolar d/o - depressed, severe PTSD YASMINE Borderline personality d/o Opioid withdrawal Opioid use d/o - severe Cocaine use d/o - severe Disposition: HOME/ ROUTINE Follow-up Treatment Plan: Bipolar d/o - depressed, severe PTSD YASMINE Borderline personality d/o Opioid withdrawal Opioid use d/o - severe Cocaine use d/o - severe Lexapro for depression Abilify for AH, paranoia and bipolar d/o Taper with methadone prn librium if she starts to wdw from alcohol, xanax Gabapentin for augmentation As needed medications All risks, benefits and alternatives of the meds discussed, and the pt agreed and understood. Attend groups and activities Supportive therapy and psychoeducation [place] for abstinence CBT for relapse prevention Encourage MAT Refer to rehab or IOP, and self-help groups Teach healthy lifestyle methods, i.e. diet, exercise, meditation Limit setting for borderline, and DBT Patch for nicotine Prescriptions/Medication Reconciliation: buPROPion XL [Wellbutrin XL] 300 mg PO DAILY #30 t24 Escitalopram [Lexapro] 20 mg PO DAILY #30 tab Gabapentin [Neurontin] 300 mg PO TID #90 cap Mirtazapine [Remeron] 15 mg PO HS #30 tab QUEtiapine [Seroquel] 100 mg PO HS #30 tab Zolpidem [Ambien] 5 mg PO HS PRN #30 tab PRN Reason: Insomnia - Smoking Cessation Smoking Cessation Medication prescribed: No - Antipsychotic Medications Pt discharged on 2 or more routine antipsychotic medications: No
== END 2019-04-12 13:52 | disposition home or self-care (01) | DRG 430 ==
LOC: C.ER 23:47 → C.9E 04-04 05:50 → C.5S 04-04 06:35 → OBSVTOIN 04-04 10:59 → C.5E 04-04 11:34
PROVIDERS: ADMIT Psychiatry & Neurology Psychiatry; ATTEND Psychiatry & Neurology Psychiatry
DX: F31.4 Bipolar disorder, current episode depressed, severe, without psychotic features (principal); F11.23 Opioid dependence with withdrawal; F14.90 Cocaine use, unspecified, uncomplicated; F43.10 Post-traumatic stress disorder, unspecified; F17.210 Nicotine dependence, cigarettes, uncomplicated; E78.00 Pure hypercholesterolemia, unspecified; I10 Essential (primary) hypertension; F60.3 Borderline personality disorder; F22 Delusional disorders; E78.5 Hyperlipidemia, unspecified; Z90.49 Acquired absence of other specified parts of digestive tract